=== PATIENT | male | born 1975 | race Caucasian/White ===

== ENCOUNTER 2020-08-12 17:49 | Outpatient (CLI) | payer OTHER, SELFPAY ==
--- NOTE | 2020-08-12 17:57 | XR_ITS ---
WS: [id number] Exam: XR knee LT 3V* [id number] Date/Time of Exam: 08/12/2020 5:57 PM Reason For Exam: LEFT KNEE PAIN Findings: Comparison 05/17/2014. A total knee prosthesis is in place in satisfactory position. No sign of fracture or loosening. No chito int effusion. Soft tissues are unremarkable. XR/XR knee LT 3V* [id number] IMPRESSION: 1. Total knee replacement in satisfactory position. No sign of fracture or loos ening.
== END 2020-08-12 17:50 | disposition home or self-care (01) ==
LOC: RAD 17:50
PROVIDERS: Family Provider Electrodiagnostic Medicine; PCP Electrodiagnostic Medicine; Visit Provider Nurse Practitioner Family
DX: M25.562 Pain in left knee (principal); Z96.652 Presence of left artificial knee joint
CPT/HCPCS: 73562

== ENCOUNTER 2020-08-19 14:58 | Emergency (ER) | payer OTHER, SELFPAY ==
[2020-08-19 15:09] VITALS: BP 159/102; PULSE 84; RESP 18; TEMP 36.3; O2SAT 98; BMI 48.7
--- NOTE | 2020-08-19 15:32 | W.ED.BACK ---
HPI - Back Pain/Injury General: Chief Complaint: Back Pain/Injury Stated Complaint: siatic nerve pain Time Seen by Provider: 08/19/20 15:25 Source: patient Mode of arrival: ambulatory Limitations: no limitations History of Present Illness: HPI Narrative: 44-year-old male who states he has been having back pain over the last 2 to 3 days. States is in his left lower back and radiates down his leg. He states he has sciatica in the past and this feels similar. He denies any fevers. He denies any bowel or bladder incontinence. He states it is worse with movement or sitting for long periods of time. Improved with rest. MD elicited complaint: back pain Associated symptoms: Deny abdominal pain, chills, dysuria, fever(s), nausea or vomiting Review of Systems Const: Denies: fever(s), chills, body aches or change in appetite Eyes: Denies: blurry vision or eye discomfort ENMT: Denies: throat pain or dental pain Card: Denies: chest pain Resp: Denies: dyspnea GI: Denies: abdominal pain, nausea, vomiting or diarrhea : Denies: dysuria Musc: Reports: back pain Skin/Breast: Denies: rash Neuro: Denies: headache(s) Psych: Denies: depression Rio/Lymph: Denies: easy bruising All/Imm: Denies: urticaria Physical Exam Const: COMMON NORMALS: no acute distress, patient oriented x3 and healthy appearing HENMT: COMMON NORMALS: normocephalic and atraumatic HEAD & SCALP: normocephalic and atraumatic Eye: COMMON NORMALS: Equal, round and reactive pupils present and EOMs intact bilaterally PUPIL: Yes Equal, round and reactive pupils present Neck/C-Spine: COMMON NORMALS: full ROM and supple Chest: COMMONS NORMALS: normal inspection of the chest and normal palpation of entire chest wall Resp: COMMON NORMALS: normal respiratory effort, No retractions, No use of accessory muscles and clear to auscultation bilaterally AUSCULTATION: clear to auscultation bilaterally Cardio: COMMON NORMALS: regular rate, regular rhythm and No murmurs present (Cardio) RATE: regular rate RHYTHM: regular rhythm GI: COMMON NORMALS: Normal to inspection, nondistended, normoactive bowel sounds present, Soft to palpation, non-tender and no masses PALPATION: Yes Soft to palpation Back/Pelvis: OTHER: Slight tenderness left lower back. No saddle anesthesia. No leg weakness. Extremity: COMMON NORMALS: normal to inspection and full ROM NARRATIVE EXTREMITY EXAM: Slight tenderness over left lower back Neuro: COMMON NORMALS: patient oriented x3, moves all extremities and no focal motor deficits Psych: COMMON NORMALS: mental status grossly normal, Normal thought process present and cooperative THOUGHT PROCESS: Normal thought process present Skin: COMMON NORMALS: no rashes or lesions noted and no wounds GENERAL SKIN EXAM: no rashes or lesions noted Course Vital Signs: Vital signs: Vital Signs Temperature 97.3 F L 08/19/20 15:09 Pulse Rate 84 08/19/20 15:09 Respiratory Rate 18 08/19/20 15:09 Blood Pressure 159/102 08/19/20 15:09 Pulse Oximetry 98 08/19/20 15:09 MDM - Back Pain/Injury MDM Narrative: Medical decision making narrative: Patient presents here with low back pain with sciatica left side. He has had sciatica in the past. Pain is mild to moderate. He is able ambulate without any problems and he has no signs of cord compression or epidural abscess. We will start him on pain meds along with steroids. Patient is to return if worsening. Discharge Plan Discharge Patient Disposition: Home Clinical Impression: Sciatica Qualifiers: Laterality: left Qualified Code(s): M54.32 - Sciatica, left side Condition: Stable Prescriptions: [place] 5-325 mg tablet 1 tab PO Q6H PRN (Reason: pain) Qty: 8 RF: 0 Naprosyn 500 mg tablet 500 mg PO BID PRN (Reason: pain) Qty: 20 RF: 0 Medrol (Juan) 4 mg tablets,dose pack See Rx Instructions .ROUTE .COMPLEX Qty: 21 RF: 0 No Action sotalol [Betapace] 80 mg tablet 80 mg PO .QPM RF: 0 sotalol [Betapace] 120 mg tablet 120 mg PO QAM RF: 0 levothyroxine 50 mcg capsule 50 mcg PO DAILY RF: 0 naproxen 250 mg tablet 250 mg PO BID PRNRF: 0 aspirin 325 mg tablet 325 mg PO DAILY RF: 0 Discharge Orders: Discharge Order (Routine); Ordered 08/19/20 Ordered By: Katlyn Lugo Referrals: Aleman,Bryce J, DO [Primary Care Provider] - 1-3 days Discharge Diet: Advance as tolerated Discharge Activity: Resume usual activity Patient Instructions: Sciatica (ED) Stand Alone Forms: Work/School Release Coding Level of Care Code ED Air Conditioner Installer Helper for Ambreen Cristina
[2020-08-19] MEDS: HYDROcodone-acetaminophen 5-325 mg Tablet 1 TAB PO (15:42)
== END 2020-08-19 15:50 | disposition home or self-care (01) ==
PROVIDERS: Emergency Provider Emergency Medicine; PCP Electrodiagnostic Medicine
DX: M54.32 Sciatica, left side (principal); Z79.82 Long term (current) use of aspirin
CPT/HCPCS: 12345; 99282

== ENCOUNTER 2020-12-08 14:02 | Observation (INO) | payer OTHER, SELFPAY ==
[2020-12-08] VITALS (11 sets, daily range): BP systolic 106–147; BP diastolic 64–92; PULSE 68–118; RESP 16–31; TEMP 36.6; O2SAT 95–99; BMI 46.7; BMI 49.5
--- NOTE | 2020-12-08 14:18 | ECG_ITS ---
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 Measurements Intervals [place] Rate: 125 P: MT: QRS: 46 QRSD: 85 T: 61 QT: 290 QTc: 419 Interpretive Statements ATRIAL FIBRILLATION WITH RAPID VENTRICULAR RESPONSE ABNORMAL RHYTHM ECG Compared to ECG 02/17/2019 01:20:09 Sinus rhythm no longer present Electronically Signed On 12-08-2020 18:36:34 HAIR MACHINE OPERATOR by Josefina Pedroza M.D. [id number] f
--- NOTE | 2020-12-08 14:18 | XRR_ITS ---
PROCEDURE INFORMATION: Exam: XR Chest, 1 View Exam date and time: 12/08/2020 2:19 PM Age: 45 years old Clinical indication: Shortness of breath; Additional info: SOB TECHNIQUE: Imaging protocol: XR of the chest Views: 1 view. Total images: 1 COMPARISON: CR Chest 1 [place] [id number] 02/11/2019 5:33 AM FINDINGS: Lungs: Unremarkable. No consolidation. Pleural spaces: Unremarkable. No pleural effusion. No pneumothorax. Heart/Mediastinum: Unremarkable. No cardiomegaly. Bones/joints: Unremarkable. Other findings: Heavy body habitus. XR/XR chest 1V portable [id number] IMPRESSION: Nonacute.
--- NOTE | 2020-12-08 14:25 | ED_ITS ---
HPI - Arrhythmia/Palpitations General: Chief Complaint: Arrhythmia/Palpitations Stated Complaint: AFIB & SOB Time Seen by Provider: 12/08/20 14:17 Source: patient Mode of arrival: ambulatory Limitations: no limitations History of Present Illness: HPI narrative: 45-year-old male with a history of paroxysmal A. fib states this morning at 530 he had sudden onset of palpitations along with some pain and shortness of breath. Patient here is in A. fib with RVR with a heart rate in the 150s. States his pain is a sharp pain and rates it a 6 out of 10. He denies any vomiting or diarrhea. Denies any worsening or improving factors. Associated symptoms: Deny nausea or vomiting Review of Systems Const: Denies: fever(s), chills, body aches or change in appetite Eyes: Denies: blurry vision or eye discomfort ENMT: Denies: throat pain or dental pain Card: Reports: chest pain and palpitations Resp: Reports: dyspnea GI: Denies: abdominal pain, nausea, vomiting or diarrhea : Denies: dysuria Musc: Denies: neck pain or back pain Skin/Breast: Denies: rash Neuro: Denies: headache(s) Psych: Denies: depression Rio/Lymph: Denies: easy bruising All/Imm: Denies: urticaria Physical Exam Const: COMMON NORMALS: no acute distress, patient oriented x3 and healthy appearing HENMT: COMMON NORMALS: normocephalic and atraumatic HEAD & SCALP: normocephalic and atraumatic Eye: COMMON NORMALS: Equal, round and reactive pupils present and EOMs intact bilaterally PUPIL: Yes Equal, round and reactive pupils present Neck/C-Spine: COMMON NORMALS: full ROM and supple Chest: COMMONS NORMALS: normal inspection of the chest and normal palpation of entire chest wall Resp: COMMON NORMALS: normal respiratory effort, No retractions, No use of accessory muscles and clear to auscultation bilaterally AUSCULTATION: clear to auscultation bilaterally Cardio: COMMON NORMALS: No murmurs present (Cardio) RATE: tachycardic RHYTHM: abnormal rhythm regularly irregular GI: COMMON NORMALS: Normal to inspection, nondistended, normoactive bowel sounds present, Soft to palpation, non-tender and no masses PALPATION: Yes Soft to palpation Extremity: COMMON NORMALS: normal to inspection and full ROM Neuro: COMMON NORMALS: patient oriented x3, moves all extremities and no focal motor deficits Psych: COMMON NORMALS: mental status grossly normal, Normal thought process present and cooperative THOUGHT PROCESS: Normal thought process present Skin: COMMON NORMALS: no rashes or lesions noted and no wounds GENERAL SKIN EXAM: no rashes or lesions noted Course Vital Signs: Vital signs: Vital Signs Temperature 97.8 F 12/08/20 14:11 Pulse Rate 118 H 12/08/20 15:26 Respiratory Rate 26 H 12/08/20 15:26 Blood Pressure 110/69 12/08/20 15:26 Pulse Oximetry 97 12/08/20 15:26 MDM - Arrhythmia/Palpitations MDM Narrative: Medical decision making narrative: Patient presents with A. fib with RVR has improved after Cardizem bolus and a drip. His first troponin and D- dimer here negative. He feels improved as well. Spoke to the hospitalist and will admit for observation for his A. fib as he is on a Cardizem drip currently. Lab Data: Labs: Lab Results 12/08/20 12/08/20 12/08/20 Range/Units 15:05 15:05 15:05 WBC 12.3 H (4.0-10.0) 10^3/ uL RBC 5.04 (4.1-5.3) 10^6/u L Hgb 15.7 (11.7-16.6) g/dL Hct 46.4 (42.0-52.0) % MCV 92.1 (80-94) fL MCH 31.2 (28.0-34.0) pg MCHC 33.8 (30.0-36.0) g/dL RDW 13.2 (12.1-15.1) % Plt Count 282 (130-400) 10^3/c mm MPV 10.3 (7.4-10.4) fL Neut % (Auto) 55.4 % Lymph % (Auto) 33.7 % [place] % (Auto) 7.2 % Eos % (Auto) 2.4 % Baso % (Auto) 0.7 % Neut # (Auto) 6.82 (1.8-7.7) 10^3/u L Lymph # (Auto) 4.1 (0.8-4.8) 10^3/u L [place] # (Auto) 0.9 (0.2-0.9) 10^3/u L Eos # (Auto) 0.3 (0.0-0.8) 10^3/u L Baso # (Auto) 0.1 (0.0-0.1) 10^3/u L Nucleated RBC % (a uto) 0 % Nucleated RBCs # 0.0 /100WBC PT 13.60 (12.1-14.9) SECO NDS INR 1.01 (0.8-1.2) D-Dimer 0.41 (0-0.59) ug/mIFE U Sodium 138 (136-145) mmol/L Potassium 4.0 (3.5-5.1) mmol/L Chloride 104 (98-107) mmol/L Carbon Dioxide 24 (22-29) mmol/L Anion Gap 14.0 (5-19) BUN 12 (6-20) mg/dL Creatinine 0.8 (0.7-1.2) mg/dL GFR Calculation 104.1 (90-130) mL/min Calculated Osmolal ity 288 (285-295) mOsm/k g Calcium 8.9 (8.5-10.5) mg/dL Total Bilirubin 0.3 (0.15-1.2) mg/dL AST 20 (0-40) U/L ALT 26 (0-41) U/L Alkaline Phosphata se 102 (40-130) IU/L Troponin T Baselin e (0-15) ng/L Total Protein 6.8 (6.6-8.7) g/dL Albumin 3.8 (3.5-5.2) g/dL Globulin 3.0 (1.3-4.6) g/dL TSH 1.13 (0.27-4.20) uIU/ mL 12/08/20 Range/Units 15:05 WBC (4.0-10.0) 10^3/ uL RBC (4.1-5.3) 10^6/u L Hgb (11.7-16.6) g/dL Hct (42.0-52.0) % MCV (80-94) fL MCH (28.0-34.0) pg MCHC (30.0-36.0) g/dL RDW (12.1-15.1) % Plt Count (130-400) 10^3/c mm MPV (7.4-10.4) fL Neut % (Auto) % Lymph % (Auto) % [place] % (Auto) % Eos % (Auto) % Baso % (Auto) % Neut # (Auto) (1.8-7.7) 10^3/u L Lymph # (Auto) (0.8-4.8) 10^3/u L [place] # (Auto) (0.2-0.9) 10^3/u L Eos # (Auto) (0.0-0.8) 10^3/u L Baso # (Auto) (0.0-0.1) 10^3/u L Nucleated RBC % (a uto) % Nucleated RBCs # /100WBC PT (12.1-14.9) SECO NDS INR (0.8-1.2) D-Dimer (0-0.59) ug/mIFE U Sodium (136-145) mmol/L Potassium (3.5-5.1) mmol/L Chloride (98-107) mmol/L Carbon Dioxide (22-29) mmol/L Anion Gap (5-19) BUN (6-20) mg/dL Creatinine (0.7-1.2) mg/dL GFR Calculation (90-130) mL/min Calculated Osmolal ity (285-295) mOsm/k g Calcium (8.5-10.5) mg/dL Total Bilirubin (0.15-1.2) mg/dL AST (0-40) U/L ALT (0-41) U/L Alkaline Phosphata se (40-130) IU/L Troponin T Baselin e 14 (0-15) ng/L Total Protein (6.6-8.7) g/dL Albumin (3.5-5.2) g/dL Globulin (1.3-4.6) g/dL TSH (0.27-4.20) uIU/ mL Imaging Data^: CXR: Attestation: I personally reviewed and interpreted this imaging study as follows: My impression: no acute abnomality EKG Data^: EKG 1: Attestation: I personally reviewed and interpreted this EKG as follows: EKG interpretation date: 12/08/20 EKG interpretation time: 14:09 Interpretation: afib hr [address] or t wave abnormalities qrs 85 qtc 364 Other EKG comments: Chest X-Ray 12/08/20 14:18 IMPRESSION: Nonacute. Discharge Plan Discharge Patient Disposition: Admitted As Inpatient Clinical Impression: Atrial fibrillation Qualifiers: Atrial fibrillation type: unspecified Qualified Code(s): I48.91 - Unspecified atrial fibrillation Condition: Stable Coding Level of Care Code ED Surveillance Inspector for g Fwd Exam Comprehensive
[2020-12-08] MEDS: sodium chloride 0.9% 1,000 ML 999 ML IV (14:52)
[2020-12-08 15:11] LABS: Basophils # 0.1 10^3/uL (0.0-0.1); Basophils % 0.7 %; Eosinophils # 0.3 10^3/uL (0.0-0.8); Eosinophils % 2.4 %; Hematocrit 46.4 % (42.0-52.0); Hemoglobin 15.7 g/dL (11.7-16.6); Lymphocytes # 4.1 10^3/uL (0.8-4.8); Lymphocytes % 33.7 %; Mean Corpuscular HGB Conc 33.8 g/dL (30.0-36.0); Mean Corpuscular Hemoglobin 31.2 pg (28.0-34.0); Mean Corpuscular Volume 92.1 fL (80-94); Mean Platelet Volume 10.3 fL (7.4-10.4); Monocytes # 0.9 10^3/uL (0.2-0.9); Monocytes % 7.2 %; Neutrophils # 6.82 10^3/uL (1.8-7.7); Neutrophils % 55.4 %; Nucleated Red Blood Cells % 0 %; Platelet Count 282 10^3/cmm (130-400); Red Blood Count 5.04 10^6/uL (4.1-5.3); Red Cell Distribution Width 13.2 % (12.1-15.1); White Blood Count 12.3 10^3/uL (4.0-10.0)
[2020-12-08 15:31] LABS: INR 1.01 (0.8-1.2)
[2020-12-08 15:33] LABS: D Dimer 0.41 ug/mIFEU (0-0.59)
[2020-12-08 15:35] LABS: Troponin(5th) Baseline 14 ng/L (0-15)
[2020-12-08 15:41] LABS: Alanine Aminotransferase 26 U/L (0-41); Albumin Level 3.8 g/dL (3.5-5.2); Alkaline Phosphatase 102 IU/L (40-130); Aspartate Amino Transferase 20 U/L (0-40); Blood Urea Nitrogen 12 mg/dL (6-20); Calcium 8.9 mg/dL (8.5-10.5); Carbon Dioxide 24 mmol/L (22-29); Chloride 104 mmol/L (98-107); Glomerular Filtration Rate 104.1 mL/min (90-130); Glucose 134 mg/dL (65-115); Osmolality Calculated 288 mOsm/kg (285-295); Sodium 138 mmol/L (136-145); Thyroid Stimulating Hormone 1.13 uIU/mL (0.27-4.20); Total Bilirubin 0.3 mg/dL (0.15-1.2); Total Protein 6.8 g/dL (6.6-8.7)
[2020-12-08] MEDS: LORazepam 2 mg/mL INJ 1 mL 1 MG IVP (16:15)
--- NOTE | 2020-12-08 16:18 | ECG_ITS ---
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 Measurements Intervals [place] Rate: 106 P: SD: QRS: 37 QRSD: 92 T: 59 QT: 340 QTc: 452 Interpretive Statements ATRIAL FIBRILLATION WITH RAPID VENTRICULAR RESPONSE Compared to ECG 02/17/2019 01:20:09 Sinus rhythm no longer present Electronically Signed On 12-08-2020 18:39:01 BABYSITTER by Josefina Pedroza M.D. [id number]
--- NOTE | 2020-12-08 16:37 | P.HP_ITS ---
Providers/Chief Complaint Primary Care Provider: Patti Khan Chief Complaint: AFIB History of Present Illness Kerrie Davis is a 45 year old male with past medical history of atrial fibrillation who is on sotalol, hypothyroidism, morbid obesity who is presenting with complaints of palpitations which started suddenly this morning causing significant palpitations, throbbing in the head, chest discomfort and shortness of breath. The symptoms are described as moderate. Currently resolved after the patient was given diltiazem in the emergency room. Currently on diltiazem drip. Reports similar episode about 2 years ago when he was diagnosed with atrial fibrillation. He has not seen his aluminum pool installer Dr Lafleur for the last 12 months or so. He reports taking his medications regularly except for aspirin which she frequently forgets. Denies history of heart attacks or CHF, strokes, bleeding problems or blood clots. He reports some dry cough and upper respiratory symptoms for last several days. Denies fever or chills. No nausea or vomiting. No diarrhea. No sick contacts. He reports generalized tiredness and decreased energy level since last 2 months or so. Reports tobacco smoking. Denies drugs and alcohol. Review of Systems General: Reports: 10 or more systems reviewed and unremarkable except in HPI and below Medications/Allergies Home Medications Medication Instructions Recorded Confirmed Last Taken Type levothyroxine 50 mcg capsule 50 mcg PO DAILY 11/27/19 12/08/20 12/08/20 History sotalol 120 mg tablet 120 mg PO QAM tab 11/27/19 12/08/20 12/08/20 History sotalol 80 mg tablet 80 mg PO QPM tab 11/27/19 12/08/20 12/07/20 History atorvastatin 80 mg PO DAILY 12/08/20 12/08/20 12/07/20 History Allergies Allergy/AdvReac Type Severity Reaction Status Date / Time No Known Allergies Allergy Unverified 08/19/20 15:12 Vitals/I&O/Wt Last Vital Signs Temp 97.8 F 12/08/20 14:11 Pulse 108 H 12/08/20 16:22 Resp 31 H 12/08/20 16:22 BP 113/64 12/08/20 16:22 Pulse Ox 96 12/08/20 16:22 12/08/20 12/08/20 12/08/20 06:59 14:59 22:59 Intake Total 3.666 / 3.666 Balance 3.666 / 3.666 Weight last 48 hrs Weight 143.789 kg Physical Exam Narrative: EXAM NARRATIVE: Awake alert oriented x4. No acute distress. Mood and affect are appropriate. Responses are adequate. Skin is warm and dry. Moist extremities. Neck supple. No JVD Lungs no wheezes or crackles. No respiratory distress Heart S1, S2, irregularly irregular Abdomen is soft, obese, nontender, bowel sounds are present Extremities no edema cyanosis or calf tenderness bilaterally no tremors. Neuro exam is nonfocal Data : 12/08/20 15:05 12/08/20 15:05 Other Labs: Laboratory Results WBC 12.3 10^3/uL (4.0-10.0) H 12/08/20 15:05 RBC 5.04 10^6/uL (4.1-5.3) 12/08/20 15:05 Hgb 15.7 g/dL (11.7-16.6) 12/08/20 15:05 Hct 46.4 % (42.0-52.0) 12/08/20 15:05 MCV 92.1 fL (80-94) 12/08/20 15:05 MCH 31.2 pg (28.0-34.0) 12/08/20 15:05 MCHC 33.8 g/dL (30.0-36.0) 12/08/20 15:05 RDW 13.2 % (12.1-15.1) 12/08/20 15:05 Plt Count 282 10^3/cmm (130-400) 12/08/20 15:05 MPV 10.3 fL (7.4-10.4) 12/08/20 15:05 Neut % (Auto) 55.4 % 12/08/20 15:05 Lymph % (Auto) 33.7 % 12/08/20 15:05 [place] % (Auto) 7.2 % 12/08/20 15:05 Eos % (Auto) 2.4 % 12/08/20 15:05 Baso % (Auto) 0.7 % 12/08/20 15:05 Neut # (Auto) 6.82 10^3/uL (1.8-7.7) 12/08/20 15:05 Lymph # (Auto) 4.1 10^3/uL (0.8-4.8) 12/08/20 15:05 [place] # (Auto) 0.9 10^3/uL (0.2-0.9) 12/08/20 15:05 Eos # (Auto) 0.3 10^3/uL (0.0-0.8) 12/08/20 15:05 Baso # (Auto) 0.1 10^3/uL (0.0-0.1) 12/08/20 15:05 Nucleated RBC % (auto) 0 % 12/08/20 15:05 Nucleated RBCs # 0.0 /100WBC 12/08/20 15:05 PT 13.60 SECONDS (12.1-14.9) 12/08/20 15:05 INR 1.01 (0.8-1.2) 12/08/20 15:05 D-Dimer 0.41 ug/mIFEU (0-0.59) 12/08/20 15:05 Sodium 138 mmol/L (136-145) 12/08/20 15:05 Potassium 4.0 mmol/L (3.5-5.1) 12/08/20 15:05 Chloride 104 mmol/L (98-107) 12/08/20 15:05 Carbon Dioxide 24 mmol/L (22-29) 12/08/20 15:05 Anion Gap 14.0 (5-19) 12/08/20 15:05 BUN 12 mg/dL (6-20) 12/08/20 15:05 Creatinine 0.8 mg/dL (0.7-1.2) 12/08/20 15:05 GFR Calculation 104.1 mL/min (90-130) 12/08/20 15:05 Glucose 134 mg/dL (65-115) H 12/08/20 15:05 Calculated Osmolality 288 mOsm/kg (285-295) 12/08/20 15:05 Calcium 8.9 mg/dL (8.5-10.5) 12/08/20 15:05 Total Bilirubin 0.3 mg/dL (0.15-1.2) 12/08/20 15:05 AST 20 U/L (0-40) 12/08/20 15:05 ALT 26 U/L (0-41) 12/08/20 15:05 Alkaline Phosphatase 102 IU/L (40-130) 12/08/20 15:05 Troponin T Baseline 14 ng/L (0-15) 12/08/20 15:05 Total Protein 6.8 g/dL (6.6-8.7) 12/08/20 15:05 Albumin 3.8 g/dL (3.5-5.2) 12/08/20 15:05 Globulin 3.0 g/dL (1.3-4.6) 12/08/20 15:05 TSH 1.13 uIU/mL (0.27-4.20) 12/08/20 15:05 Impressions Chest X-Ray 12/08/20 14:18 IMPRESSION: Nonacute. EKG shows A. fib with RVR. No acute ischemic changes. A&P Additional A&P Information 45-year-old male with past medical history of paroxysmal A. fib, hypothyroidism, morbid obesity and tobacco abuse who is presenting with palpitations and associated chest discomfort, shortness of breath, generalized tiredness. A. fib with RVR. Currently heart rate is improved with diltiazem drip. Will go to cardiac stepdown. We will continue diltiazem. We will continue home sotalol. Chads 2 score is 0 at this point. No anticoagulation. We will continue his home aspirin. Echo will be ordered. Will notify Dr. Lafleur. Shortness of breath. Echo. Chest discomfort. Probably secondary to #1. We will continue monitoring troponin level. Most likely this is due to RVR. Upper respiratory symptoms. I will check his Covid. I suspect he has some degree of COPD. He is active smoker. We will also order Pulmicort Respules. Would like to avoid albuterol or Atrovent due to tachycardia. Tobacco abuse. Counseling is provided. Dyslipidemia. We will continue statin. DVT prophylaxis. Heparin. CODE STATUS seems to be full code. The plan of care was discussed with the patient and his at the bedside. I answered to all their questions to the best of my knowledge. They verbalized understanding, agreement and satisfaction with the conversation. Attestations Medical Necessity Statement*: Observation Coding Level of Care Code Acute Juice Packaging Machines Setter for Ambreen Cristina
[2020-12-08 17:17] LABS: SARS Covid-2 Antigen Negative (Negative)
[2020-12-08] MEDS: heparin 5,000 unit/mL INJ 1 mL 5000 UNIT SUBCUT ×2 (17:17→23:39)
[2020-12-08 17:40] LABS: Troponin 5 2HR 12.06 ng/L (0-15)
[2020-12-08 17:44] LABS: Troponin 5 2HR Delta -1.94 ABS# (0-10)
[2020-12-08] MEDS: sotalol 80 mg Tablet PO (18:11)
--- NOTE | 2020-12-08 18:20 | PC.NURSE ---
admitted into room 102 from er at 1800.report received.pt is alert and oriented x 4 .afib on monitor.rate 115.cardizem drip on at 15 mg/hr.denies chest pain,sob.oriented to room environment.instructed to notify staff for any sob,cp,dizziness,or any concerns at all.pt verb understanding of instructions
--- NOTE | 2020-12-08 19:13 | PC.NURSE ---
Addendum entered by Grace Avalos RN 12/08/20 19:25: SR Coverted to sinus rhythm at 1903. Strip printed and placed in patient's chart. Original Note: Received report from JOHN Martinez. Patient is currently sinus rhythm with rate at 70-71. Decreased cardizem drip to 5ml/hr currently. Discussed change from afib to normal sinus rhythm with patient. Patient verbalized understanding. Discussed medications for this evening uses and expectations. Patient again verbalized understanding. Patient denies needs or other discomforts at this time. No distress observed.
[2020-12-08] MEDS: budesonide 0.5 mg/2 mL Neb INHALATION (19:49)
--- NOTE | 2020-12-08 20:40 | PC.NURSE ---
Patient remains in sinus rhythm at a rate of 69-72. Placed cardizem drip on pause at this time.
[2020-12-08 22:38] LABS: Troponin 5 6HR 10.29 ng/L (0-15)
[2020-12-08 22:40] LABS: Troponin 5 6HR Delta -3.71 ng/L (0-12)
[2020-12-09] VITALS (10 sets, daily range): BP systolic 107–144; BP diastolic 70–111; PULSE 60–72; RESP 16–18; TEMP 36.4–36.7; O2SAT 95–100
[2020-12-09] MEDS: sotalol 80 mg Tablet 120 MG PO (05:21)
--- NOTE | 2020-12-09 05:27 | PC.NURSE ---
Patient requesting his thyroid medication this morning. Noted that home dose was not ordered. Spoke with Dr Aguirre and received order to start levothyroxine 50mcg qam. RBVO.
[2020-12-09 05:48] LABS: Basophils # 0.1 10^3/uL (0.0-0.1); Basophils % 0.8 %; Eosinophils # 0.3 10^3/uL (0.0-0.8); Eosinophils % 2.4 %; Hematocrit 43.3 % (42.0-52.0); Hemoglobin 14.4 g/dL (11.7-16.6); Lymphocytes # 3.8 10^3/uL (0.8-4.8); Lymphocytes % 36.2 %; Mean Corpuscular HGB Conc 33.3 g/dL (30.0-36.0); Mean Corpuscular Volume 93.1 fL (80-94); Mean Platelet Volume 11.2 fL (7.4-10.4); Monocytes % 9.2 %; Neutrophils # 5.38 10^3/uL (1.8-7.7); Neutrophils % 50.8 %; Nucleated Red Blood Cells % 0 %; Platelet Count 251 10^3/cmm (130-400); Red Blood Count 4.65 10^6/uL (4.1-5.3); Red Cell Distribution Width 13.4 % (12.1-15.1); White Blood Count 10.6 10^3/uL (4.0-10.0)
--- NOTE | 2020-12-09 06:00 | USCV_ITS ---
Kerrie Davis Age: 45 Gender: M : 1975 Exam Date: 12/09/2020 06:25 Ordering Phys: Maykel Bah MD Technologist: Jose Schilling Exam Location: [facility] [place] Indication: MSSA BC BP: 117 / 76 HR: 69 Rhythm: Sinus Technical Quality: Limited MEASUREMENTS (Male / Female) Normal Values 2D ECHO LV Diastolic Diameter PLAX 3.3 cm 4.2 - 5.9 / 3.9 - 5.3 cm LV Systolic Diameter PLAX 2.7 cm IVS Diastolic Thickness 1.9 cm 0.6 - 1.0 / 0.6 - 0.9 cm IVS Systolic Thickness 2.0 cm LVPW Diastolic Thickness 1.1 cm 0.6 - 1.0 / 0.6 - 0.9 cm LVPW Systolic Thickness 1.6 cm LVOT Diameter 2.1 cm LV Ejection Fraction 2D Teich 12.0 % LV Ejection Fraction MOD 2C 63.6 % LV Ejection Fraction 2C AL 63.0 % LA Diameter 4.0 cm LA Width 4.2 cm LA Height 5.2 cm RA Width 3.6 cm RA Height 5.0 cm Aorta at Sinotubular Diameter 2.7 cm M-MODE LV Diastolic Diameter MM 5.1 cm 4.2 - 5.9 / 3.9 - 5.3 cm LV Systolic Diameter MM 2.9 cm LV Ejection Fraction MM Teich 73.0 % IVS Diastolic Thickness MM 1.6 cm 0.6 - 1.0 / 0.6 - 0.9 cm IVS Systolic Thickness MM 2.1 cm LVPW Diastolic Thickness MM 1.5 cm 0.6 - 1.0 / 0.6 - 0.9 cm LVPW Systolic Thickness MM 2.2 cm RV Diastolic Diameter MM 1.9 cm Aortic Annulus Diameter 3.8 cm LA Ao Ratio MM 1.1 MV E Point Septal Separation 0.6 cm DOPPLER AV Peak Velocity 119.0 cm/s LVOT Peak Velocity 85.0 cm/s AV Area Cont Eq vti 2.5 cm squared AV Area Cont Eq pk 2.4 cm squared MV Area PHT 5.0 cm squared Mitral E to A Ratio 1.3 MV E' Velocity 42.0 cm/s Mitral E to MV E' Ratio 8.2 Mitral E to LV E' Lateral Ratio 8.6 Mitral E to LV E' Septal Ratio 7.9 TR Peak Velocity 140.7 cm/s TR Peak Gradient 7.9 mmHg TV Peak E Velocity 118.0 cm/s Right Atrial Pressure 3.0 mmHg Pulmonary Artery Systolic Pressu 10.9 mmHg FINDINGS Left Ventricle Normal left ventricular size. Grossly LV systolic function is normal. No regional wall motion abnormalities. Diastolic function is normal Right Ventricle The right ventricle is normal in size and function. Right Atrium The right atrium is normal in size. Left Atrium The left atrium is normal in size. Mitral Valve Grossly normal. No mitral stenosis is seen. There is no mitral regurgitation. Aortic Valve Grossly normal. No significant aortic stenosis is seen. There is no aortic regurgitation. Tricuspid Valve Not well visualized. Insufficient TR jet to calculate RVSP Pulmonic Valve Not well visualized Pericardium Normal pericardium without effusion. Aorta Normal ascending aorta dimension. CONCLUSIONS This is technically very difficult study with limited visualization of cardiac structures. LV systolic function is grossly normal Normal diastolic function Valvular structures are not well visualized. Compared to prior echocardiogram from 02/13/2019, no significant changes are noted Sergio Jimenez MD (Electronically Signed) Final Date: 09 December 2020 19:20 S
[2020-12-09] MEDS: levothyroxine 50 mcg Tablet PO (06:06)
[2020-12-09 06:10] LABS: C Reactive Protein 10.2 mg/L (0.0-4.9); Magnesium 1.8 mg/dL (1.7-2.3)
--- NOTE | 2020-12-09 07:00 | ECG_ITS ---
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 Measurements Intervals [place] Rate: 63 P: 5 MA: 195 QRS: 10 QRSD: 95 T: -5 QT: 457 QTc: 471 Interpretive Statements SINUS RHYTHM PROLONGED QT INTERVAL Compared to ECG 12/08/2020 16:09:52 Prolonged QT interval now present Atrial fibrillation no longer present Electronically Signed On 12-10-2020 6:37:46 DIAMOND CLEANER by Josefina Pedroza M.D. [email or web address].SecureWorks/store/[id number]
[2020-12-09] MEDS: atorvastatin 40 mg Tablet 80 MG PO (08:15)
[2020-12-09] MEDS: heparin 5,000 unit/mL INJ 1 mL 5000 UNIT SUBCUT (08:15)
[2020-12-09] MEDS: aspirin 81 mg EC Tablet PO (08:15)
[2020-12-09] MEDS: magnesium sulfate premix 2 GM/50 ML PIGGYBACK IV (09:00)
[2020-12-09] MEDS: dilTIAZem 30 mg Tablet PO ×2 (09:00→14:58)
[2020-12-09] MEDS: budesonide 0.5 mg/2 mL Neb INHALATION (09:09)
--- NOTE | 2020-12-09 09:24 | PC.CHAP ---
Pastoral Care Encounter/Spiritual Assessment Type of Contact [] Declined spindraw operator visit [] Patient/Family/Request visit [] Outpatient visit [] Follow-up visit [] Physician referral [] Code/Alert [x] Routine visit [] Staff referral [] Actively dying [] Patient sleeping [] Family support [] [] Out of room [] Palliative care [] [] Receiving care in room [] Pre-surgical visit [] Trauma [] Long length of stay [] ICU visit [] Other: Relational/Emotional Strength [] Patient feels connected with others/family/visitors/staff [] Distress [] Loneliness/isolation [] Abandonment Spirituality of Patient [] Person of Nury [] Attends Christianity of their [place] [] Believes in Prayer [] Reads Bible or Cheondoism materials [] There are Spiritual issues to be addressed Rehabilitation Case Coordinator Interventions [x] Prayer [] Active listening [] Non-anxious presence [] Spiritual/emotional support [] Crisis/trauma care [] Spiritual counseling [] Bereavement support [] Provided bereavement packet [] Provided Bible/devotional materials [] Provided toy/stuffed animal, coloring book to patient or family member [] Provided Communion [] Anointing/[place] [] Salvation [x] Completed spiritual assessment [] Other: Impact on Illness or Injury [] Angry [] Fearful [] Anxious [] Often cries [] Exhaustion [] Unable to work [] Unable to attend mu-ism [] Unable to walk/stand [] Unable to read [] Unable to drive [] Unable to eat/drink [] Unable to sleep [] Unable to be with family [] Patient intubated [] Other: Summary patient confident issue will be address... resting well Time spent with patient 10 min
--- NOTE | 2020-12-09 10:57 | ECG_ITS ---
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 Measurements Intervals [place] Rate: 66 P: 53 [place]: 195 QRS: 41 QRSD: 95 T: 51 QT: 439 QTc: 463 Interpretive Statements SINUS RHYTHM Compared to ECG 12/09/2020 07:13:43 Prolonged QT interval no longer present Electronically Signed On 12-10-2020 6:09:42 TERRAZZO TILE SETTER by Josefina Pedroza M.D. [id number]
--- NOTE | 2020-12-09 13:23 | ECG_ITS ---
[facility] Test Date: 2020-12-09 Pat Name: Kerrie Davis Department: Room: 102 Gender: Male Dietary Aid: : 1975 Requested By: Hardik Ordoñez Order Number: [id number] Donald MD: Josefina Pedroza M.D. Measurements Intervals [place] Rate: 68 P: 55 ME: 172 QRS: 40 QRSD: 97 T: 44 QT: 427 QTc: 457 Interpretive Statements SINUS RHYTHM Compared to ECG 12/09/2020 11:26:18 No significant changes Electronically Signed On 12-10-2020 5:58:58 TEACHER ASST by Josefina Pedroza M.D. [email or web address]/store/[id number]
--- NOTE | 2020-12-09 16:26 | PC.NURSE ---
1550 patient discharged home self care. patient provided discharge instructions as well as education on new medications and diagnosis patient assisted to wheel chair and accompanied by staff to private vehicle patient alert oriented and in stable condition upon departure
--- NOTE | 2021-01-12 13:23 | PM.DCS ---
Discharge Providers Date of Admission: 12/08/20 18:01 Date of Discharge: January 12, 2021 Attending Provider at Admission: Maykel Bah Attending Provider at Discharge: Hardik Ordoñez MD Primary Care Provider: Patti Kahn Reason for Visit Reason for Visit: AFIB Hospital Course Hospital Course This is a 45-year-old male with a past medical history of A. fib, who is on sotalol, hypothyroidism, morbid obesity who presents to [facility] due to complaints of chest palpitations -Patient was admitted to [facility] for A. fib with RVR, placed on a Cardizem drip, admitted to the CSU unit, [id number] is 0, is not on anticoagulation, patient's rate were better controlled, switch to p.o. Cardizem. He was discharged on p.o. Cardizem 60 mg p.o. every 12 hours, with sotalol 120 mg in the morning, 80 mg of sotalol every afternoon, aspirin 325 mg daily follow with Dr[address] Lafleur as outpatient. Physical Exam Const: COMMON NORMALS: no acute distress and patient oriented x3 HENMT: COMMON NORMALS: normocephalic HEAD & SCALP: normocephalic Neck/C-Spine: COMMON NORMALS: no JVD Resp: COMMON NORMALS: normal respiratory effort, No retractions, No use of accessory muscles and clear to auscultation bilaterally AUSCULTATION: clear to auscultation bilaterally Cardio: COMMON NORMALS: no JVD, regular rate, regular rhythm, S1 normal heart sound present and S2 normal heart sound present RATE: regular rate RHYTHM: regular rhythm and abnormal rhythm HEART SOUNDS: S1 normal heart sound present and S2 normal heart sound present GI: COMMON NORMALS: Normal to inspection, nondistended, normoactive bowel sounds present, Soft to palpation, non-tender, No hepatosplenomegaly present, no masses and no bruits PALPATION: Yes Soft to palpation and Yes No hepatosplenomegaly present Extremity: COMMON NORMALS: capillary refill normal, no clubbing, cyanosis or edema, no calf tenderness and no pedal edema Neuro: COMMON NORMALS: patient oriented x3 Psych: COMMON NORMALS: mental status grossly normal Discharge Data Data Completed and Pending: Completed Studies During Hospitalization Category Date Time Status XR chest 1V aroldo ble [id number] Stat Exams 12/08/20 14:18 Completed CV echo complete* [id number] Routine Ultrasound 12/09/20 06:00 Completed Vitals: Last Vital Signs Temp 98.0 F 12/09/20 15:34 Pulse 72 12/09/20 15:34 Resp 18 12/09/20 15:34 BP 119/97 12/09/20 15:34 Pulse Ox 100 12/09/20 15:34 Discharge Plan Discharge Patient Disposition: Home Condition: Stable Prescriptions: Continued sotalol [Betapace] 80 mg tablet 80 mg PO QPM RF: 0 sotalol [Betapace] 120 mg tablet 120 mg PO QAM RF: 0 levothyroxine 50 mcg capsule 50 mcg PO DAILY RF: 0 atorvastatin 80 mg tablet 80 mg PO DAILY RF: 0 No Action aspirin 325 mg tablet,delayed release (DR/EC) 325 mg PO DAILY Qty: 90 RF: 3 Discharge Orders: Discharge Order (Routine); Ordered 12/09/20 Ordered By: Hardik Ordoñez Referrals: Patti Khan RETAIL PHARMACY MANAGER [Primary Care Provider] - 4-7 days (You have a follow up appointment with Patti on 12/10/20 at 900 am. if you have any questions or need to reschedule please call [phone]. ) Austin Lafleur MD [Physician] - 1-3 days (You have follow-up appointment with Dr. Lafleur on 12/10/20 at 1:15 pm. if you have any questions or need to reschedule please call [phone]. ) Discharge Diet: Cardiac Discharge Activity: Resume usual activity Patient Instructions: Atrial Fibrillation, Diltiazem (By mouth), Aspirin (By mouth), Magnesium Oxide (By mouth), Atrial Fibrillation (DC) Activity Restrictions/Additional Instructions: -If you were to have chest pain please go to the emergency room -Please follow-up with cardiology in the next few days -Please take aspirin and Cardizem as prescribed Discharge Attestations Time Spent in Discharge Care*: less than 30 min Quality Metrics Clinical Quality Measures During this hospital stay, did patient experience: None Coding Level of Care Code Acute Chg FW DC note Exam Comprehensive
== END 2020-12-09 15:50 | disposition home or self-care (01) ==
LOC: ER 15:48 → CSU 12-09 08:27
PROVIDERS: Admitting Provider Internal Medicine; Emergency Provider Emergency Medicine; PCP Nurse Practitioner Family; Visit Provider Family Medicine
DX: I48.91 Unspecified atrial fibrillation (principal); R06.02 Shortness of breath; E03.9 Hypothyroidism, unspecified; E66.01 Morbid (severe) obesity due to excess calories; Z68.42 Body mass index [BMI] 45.0-49.9, adult; R07.89 Other chest pain; F17.210 Nicotine dependence, cigarettes, uncomplicated; E78.5 Hyperlipidemia, unspecified
CPT/HCPCS: 36415; 71045; 80053; 83735; 84443; 84484; 85025; 85378; 85610; 86140; 87426; 93005; 93306; 94640; 94664; 96365; 96366; 96367; 96372; 96375; 99285; G0378; J1644; J2060; J3475; J3490; J7030; J7626

== ENCOUNTER 2021-07-23 07:39 | Outpatient (CLI) | payer OTHER, SELFPAY ==
[2021-07-23 08:27] VITALS: BMI 47.2
--- NOTE | 2021-07-23 09:50 | ECG_ITS ---
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 The perfusion scan will be documented separately. DATA: Baseline heart rate was 57 beats per minute. Baseline blood pressure was 112/80 millimeters of mercury. Target heart rate was 174. Maximum heart rate achieved was 74 . which was 42 % of the predicted target heart rate. Maximum blood pressure was 126/88 millimeters of mercury. The reason for ending the test was completion of the protocol. The patient did not experience any symptoms. ELECTROCARDIOGRAM: BASELINE: Sinus rhythm. Normal axis. Otherwise, no ST-T changes suggestive of ischemia noted. No arrhythmia noted. EXERCISE: After Lexiscan injection, no ST-T changes suggestive of ischemic noted. No arrhythmia noted. CONCLUSION: Please note due to baseline abnormality of the EKG specificity and sensitivity of the EKG portion of LexiScan MIBI stress test will be low 1. EKG not suggestive of ischemia 2. Lexiscan injection unremarkable. 3. Perfusion scan will be documented separately. Electronically Signed On 09-05-2021 18:57:38 COUNTER CONTROL OPERATOR by AUSTIN FREITAS [email or web address]/[id number]
--- NOTE | 2021-07-23 09:51 | NMCV_ITS ---
NM kyle perf SPECT r/s* [id number] Kerrie Davis Age: 45 Gender: M : 1975 Exam Date: 07/23/2021 09:47 Ordering Phys: Austin Lafleur MD ([email or web address]) Technologist: ROLA Valenzuela Exam Location: [facility] Indications: SHORTNESS OF BREATH STRESS TEST Please see separate stress test report in Ephiphany for full findings IMAGE PROTOCOL Rest/Stress 1 Lexiscan Day Radiopharmaceutical Dose (mCi) Administration Site Administered by Rest: Tc-99m 10.8 IV ROLA Valdez Sestamibi Stress:Tc-99m 32.9 IV ROLA Valdez Sestamibi Rest: 23-Jul-2021 60 Discovery 630 Stress: 23-Jul-2021 30 Discovery 630 0.4mg Lexiscan. Supine position only as patient was unable to lay prone. SPECT RESULTS Technical Quality: Excellent Raw Data Analysis: Normal Image Corrections: No attenuation or motion correction applied Summed Stress Score: 0 Summed Rest Score: 6 Summed Difference Score: 0 PERFUSION FINDINGS Medium-sized area of patchy decreased fixed tracer uptake noted in basal to mid anterior wall suggestive of old myocardial infarction versus scarring. Medium- sized area of patchy decreased tracer uptake noted in basal to mid inferior and distal inferior segment suggestive of old myocardial infarction versus scarring. FUNCTIONAL RESULTS (calculated via Gated SPECT) Stress Image LV EF (%): 62 Stress EDV (mL):159 TID: 1.03 Stress ESV (mL):61 Rest Image LV EF (%): 62 FUNCTIONAL FINDINGS: There is normal left ventricular systolic function. IMPRESSIONS Medium-sized area of fixed perfusion defect noted in basal to mid anterior and basal to mid inferior wall suggestive of old myocardial infarction versus scarring. Small area of old myocardial infarction versus scarring noted in the distal inferior segment. There is no ischemia noted in this study. EKG segment will be documented separately. Austin Lafleur MD (Electronically Signed) Final Date: 23 July 2021 18:21 S
[2021-07-23 10:24] VITALS: BP 117/70; PULSE 71
[2021-07-23] MEDS: regadenoson 0.4 Mg/5 ml Syringe IVP (10:25)
== END 2021-07-23 07:40 | disposition home or self-care (01) ==
LOC: CDL 07:41
PROVIDERS: PCP Nurse Practitioner Family; Visit Provider Internal Medicine Cardiovascular Disease
DX: R07.9 Chest pain, unspecified (principal); R06.02 Shortness of breath
CPT/HCPCS: 78452; 93017; A9500; J2785

== ENCOUNTER 2022-03-24 16:16 | Emergency (ER) | payer OTHER, SELFPAY ==
[2022-03-24 16:38] VITALS: BP 154/94; PULSE 81; RESP 16; TEMP 36.9; O2SAT 97; BMI 44.3
[2022-03-24] MEDS: tetanus-dipt-pertussis 0.5 mL SDV IM (17:01)
--- NOTE | 2022-03-24 17:01 | W.ED.ANIMALB ---
HPI - Animal Bite General: Chief Complaint: Animal Bite Stated Complaint: R foot rash, possible snake bite Time Seen by Provider: 03/24/22 16:54 Source: patient Mode of arrival: ambulatory Limitations: no limitations History of Present Illness: 46-year-old male presents emergency room with irritation on the medial aspect of the right foot. 2 days ago he was working outside he seen a copperhead crawl over his feet but he does not think he been bit today began to have some swelling develop. There is slight blistering he is not had any fever sweats chills there is minimal discomfort at the foot. There is very mild swelling, no purulent drainage. MD complaint: possible animal exposure Onset (ago): day(s) (2) Animal: snake Mechanism: bite Location - Extremities: Right: foot Pain description: dull Associated symptoms: Deny bleeding, chills, cough, diaphoresis, erythema, fever(s), headache(s), numbness, rash, short of breath, syncope, weakness or wound drainage Review of Systems Const: Denies: fever(s), chills or diaphoresis ENMT: Denies: throat pain, ear or mastoid pain, nasal discharge or nasal congestion Card: Denies: syncope Resp: Denies: dyspnea, productive cough or non-productive cough GI: Denies: abdominal pain, nausea, vomiting or bloating Skin/Breast: Reports: rash, pruritus and erythema Neuro: Denies: headache(s) [facility] ED PFSH: Medical History Atrial fibrillation HTN (hypertension) Social History Smoking and tobacco status: current every day smoker cigarettes Packs smoked per day: 1 Years cigarettes smoked: 20 Physical Exam Const: COMMON NORMALS: no acute distress GENERAL APPEARANCE: cooperative and comfortable ORIENTATION/CONSCIOUSNESS: Yes awake, Yes oriented to person, Yes oriented to place and Yes oriented to time HENMT: COMMON NORMALS: normocephalic and atraumatic HEAD & SCALP: normocephalic and atraumatic Neck/C-Spine: COMMON NORMALS: no JVD Resp: COMMON NORMALS: normal respiratory effort, No retractions, No use of accessory muscles and clear to auscultation bilaterally AUSCULTATION: clear to auscultation bilaterally Cardio: COMMON NORMALS: no JVD, regular rate, regular rhythm and No murmurs present (Cardio) RATE: regular rate RHYTHM: regular rhythm Extremity: OTHER: Swelling redness erythema with some vesicles on the medial arch of the right foot there is no obvious punctate lesions the swelling is very limited dorsalis pedis pulse easily palpable in the right foot. Neuro: SENSORIUM/ORIENTATION: Yes oriented to person, Yes oriented to place and Yes oriented to time Skin: COMMON NORMALS: no rashes or lesions noted GENERAL SKIN EXAM: no rashes or lesions noted and no erythema Course Vital Signs: Vital signs: Vital Signs Temperature 98.4 F 03/24/22 16:38 Pulse Rate 81 03/24/22 16:38 Respiratory Rate 16 03/24/22 16:38 Blood Pressure 154/94 03/24/22 16:38 Pulse Oximetry 97 03/24/22 16:38 MDM - Animal Bite Medical Decision Making Examination of the foot I think is more of a Aylin dermatitis. It could possibly be a bite is difficult to tell. I would expect that if you have been bitten by copperhead within a few hours he would have had significant swelling and certainly now active a lot more swelling than he does it looks a little bit more like a Aylin dermatitis with some vesicular development. There is really no way to be definitive. Priscilla cover him with some Bactrim we will also start him on topical steroid and we updated his tetanus follow-up if not improving. Medical Records I reviewed the patient's medical records. Lab Data I reviewed the patient's lab results. Discharge Plan Discharge Patient Disposition: Home Clinical Impression: Skin irritation Condition: Stable Prescriptions: New Bactrim DS 800-160 mg tablet 1 tab PO Q12H 7 Days Qty: 14 0RF triamcinolone acetonide 0.1 % ointment 1 applic topical BID Qty: 30 0RF No Action nitroglycerin [Nitrostat] 0.4 mg tablet, sublingual 0.4 mg sublingual Q5M PRN (Reason: chest pain) Qty: 25 3RF Rx Instructions: do not exceed 3 doses per episode sotalol [Betapace] 80 mg tablet 80 mg PO QPM 0RF sotalol [Betapace] 120 mg tablet 120 mg PO QAM 0RF levothyroxine 50 mcg capsule 50 mcg PO DAILY 0RF aspirin 325 mg tablet,delayed release (DR/EC) 325 mg PO DAILY Qty: 14 0RF Rx Instructions: Call to make follow-up with new provider for further refills atorvastatin 80 mg tablet 80 mg PO DAILY 0RF Discharge Orders: Discharge ED (Routine); Ordered 03/24/22 Ordered By: Gurpreet Owen Referrals: Patti Khan, ENVIRONMENTAL INTERN [Primary Care Provider] - Discharge Diet: Usual diet Discharge Activity: Increase activity as tolerated Patient Instructions: Opioid Safety Activity Restrictions/Additional Instructions: Irritation your skin could either be from a snake bite or may just be a topical reaction. Elevate the affected extremity. Follow-up with your primary care doctor if not improving. Your tetanus was updated at today's visit as well. Coding Level of Care Code ED Wool Fleece Grader for Ambreen Cristina
== END 2022-03-24 17:39 | disposition home or self-care (01) ==
PROVIDERS: Emergency Provider Family Medicine; PCP Nurse Practitioner Family
DX: R21 Rash and other nonspecific skin eruption (principal); Z23 Encounter for immunization
CPT/HCPCS: 90471; 90715; 99283

== ENCOUNTER → 2023-01-28 15:27 | Outpatient (BNVA) | payer OTHER, SELFPAY | PROVIDERS: PCP Nurse Practitioner; Visit Provider Nurse Practitioner | DX: E03.8 Other specified hypothyroidism (principal); I10 Essential (primary) hypertension | CPT/HCPCS: 80053; 80061; 84443 ==

== ENCOUNTER → 2023-12-13 16:48 | Outpatient (BNVA) | payer OTHER, SELFPAY | PROVIDERS: PCP Nurse Practitioner; Visit Provider Nurse Practitioner | DX: I10 Essential (primary) hypertension; E78.2 Mixed hyperlipidemia; E03.8 Other specified hypothyroidism | CPT/HCPCS: 80053; 80061; 84443 ==

== ENCOUNTER 2024-05-14 06:14 | Emergency (ER) | payer OTHER, SELFPAY ==
[2024-05-14 06:33] VITALS: BP 126/93; PULSE 75; RESP 16; TEMP 36.5; O2SAT 99; BMI 41.3
--- NOTE | 2024-05-14 06:45 | ED_ITS ---
HPI - Back Pain/Injury General: Chief Complaint: Back Pain/Injury Stated Complaint: back pain Time Seen by Provider: 05/14/24 06:39 Source: patient Mode of arrival: ambulatory Limitations: no limitations History of Present Illness: 48-year-old male states he has a history of back pain and states that he has been remodeling his house and working on it. He states that since Wednesday he has been having right low back pain. States sharp pain is worse with movement improved with rest he has some radiation down his leg he denies any bowel or bladder incontinence he rates his pain a 6 out of 10 currently. Associated symptoms: Deny abdominal pain, chills, fever(s), nausea or vomiting Review of Systems Const: Denies: fever(s), chills, body aches or change in appetite ENMT: Denies: throat pain or dental pain Card: Denies: chest pain Resp: Denies: dyspnea GI: Denies: abdominal pain, nausea, vomiting or diarrhea Musc: Reports: back pain; Denies: neck pain Skin/Breast: Denies: rash Neuro: Denies: headache(s) PFSH ED PFSH: Medical History Hyperlipidemia, mixed Obesity, morbid, BMI 40.0-49.9 Sciatic neuropathy Right Gout Adult onset hypothyroidism Atrial fibrillation HTN (hypertension) Surgical History History of back surgery Lumbar S/P knee replacement left Family History Father Cancer Lung Lung disease Mother Cancer Colon Hypertension Denies family history of Diabetes CAD (coronary artery disease) Dementia Stroke Social History Smoking and tobacco/nicotine status: current every day tobacco/nicotine user cigarettes Packs smoked per day: 1 Years cigarettes smoked: 20 Second hand smoke exposure: No Alcohol intake: never Substance/Drug Use: never Adopted: No Caregiver/support person: No Lives independently: Yes Household members: spouse Housing: House Marital status: Number of children: 1 Highest education level completed: High School Graduate service: No Current occupational status: employed Current occupation: [employer] Pets and animals: Yes Do you think of yourself as: Straight/Heterosexual Current gender identity: Male Physical Exam Const: COMMON NORMALS: no acute distress, patient oriented x3 and healthy appearing HENMT: COMMON NORMALS: normocephalic and atraumatic HEAD & SCALP: normocephalic and atraumatic Neck/C-Spine: COMMON NORMALS: full ROM and supple Chest: COMMONS NORMALS: normal inspection of the chest Resp: COMMON NORMALS: normal respiratory effort Back/Pelvis: OTHER: Right low back tenderness no saddle anesthesia Extremity: COMMON NORMALS: normal to inspection and full ROM Neuro: COMMON NORMALS: patient oriented x3, moves all extremities and no focal motor deficits Psych: COMMON NORMALS: mental status grossly normal, Normal thought process present and cooperative THOUGHT PROCESS: Normal thought process present Skin: COMMON NORMALS: no rashes or lesions noted and no wounds GENERAL SKIN EXAM: no rashes or lesions noted Course Vital Signs: Vital signs: Vital Signs Temperature 97.7 F 05/14/24 06:33 Pulse Rate 75 05/14/24 06:33 Respiratory Rate 16 05/14/24 06:33 Blood Pressure 126/93 05/14/24 06:33 Pulse Oximetry 99 05/14/24 06:33 Oxygen Delivery Me thod Room Air 05/14/24 06:33 MDM - Back Pain/Injury Medical Decision Making Patient presents here with back pain is likely muscular in origin he is point tender on exam we will start him on steroid along with Robaxin and Naprosyn he is to follow-up with his PCP and return if worsening. Medical Records I reviewed the patient's medical records. Labs I reviewed the patient's lab results. No radiology studies performed this visit Discharge Plan Discharge Patient Disposition: Home Clinical Impression: Low back pain Condition: Stable Prescriptions: New methocarbamol 750 mg tablet 750 mg PO Q6H PRN (Reason: spasms) Qty: 20 0RF prednisone 50 mg tablet 50 mg PO DAILY Qty: 5 0RF Naprosyn 500 mg tablet 500 mg PO BID PRN (Reason: pain) Qty: 20 0RF No Action nitroglycerin [Nitrostat] 0.4 mg tablet, sublingual 0.4 mg sublingual Q5M PRN (Reason: chest pain) Qty: 25 3RF Rx Instructions: do not exceed 3 doses per episode naproxen 500 mg tablet 500 mg PO DAILY PRN (Reason: pain) Qty: 90 0RF aspirin [Adult Low Dose Aspirin] 81 mg tablet,delayed release (DR/EC) 81 mg PO DAILY (DME) pen needle, diabetic 33 gauge x 5/32 needle See Rx Instructions .ROUTE .MEDSUPPLY Qty: 100 5RF Rx Instructions: 1 time day levothyroxine 50 mcg tablet 50 mcg PO DAILY Qty: 90 0RF Victoza 3-Juan 0.6 mg/0.1 mL (18 mg/3 mL) pen injector 2.4 mg SUBCUT DAILY Qty: 18 2RF sotalol [Betapace] 80 mg tablet 80 mg PO QPM Qty: 90 0RF sotalol [Betapace] 120 mg tablet 120 mg PO QAM Qty: 90 0RF valsartan [Diovan] 80 mg tablet 80 mg PO DAILY Qty: 90 0RF atorvastatin 80 mg tablet 80 mg PO DAILY Qty: 90 0RF prednisone 5 mg tablet 5 mg PO DAILY Qty: 7 0RF Discharge Orders: Discharge ED (Routine); Ordered 05/14/24 Ordered By: Katlyn Lugo Referrals: Nicolas Pink, SUPERVISOR VENEER-C [Primary Care Provider] - 4-7 days Discharge Diet: Advance as tolerated Discharge Activity: Resume usual activity Patient Instructions: Back Pain (ED) Coding Level of Care Code ED Server Programmer for Ambreen Cristina
[2024-05-14] MEDS: ketorolac 60 mg/2 mL INJ IM (06:46)
[2024-05-14] MEDS: dexamethasone 10 mg/mL INJ IM (06:46)
== END 2024-05-14 07:23 | disposition home or self-care (01) ==
PROVIDERS: Emergency Provider Emergency Medicine; PCP Nurse Practitioner
DX: M54.50 Low back pain, unspecified (principal); Z79.82 Long term (current) use of aspirin; F17.210 Nicotine dependence, cigarettes, uncomplicated; E78.2 Mixed hyperlipidemia; I10 Essential (primary) hypertension
CPT/HCPCS: 96372; 99284; J1100; J1885

== ENCOUNTER 2024-06-21 09:28 | Emergency (ER) | payer OTHER, SELFPAY ==
[2024-06-21 09:35] VITALS: BP 168/114; PULSE 80; RESP 17; TEMP 36.4; O2SAT 98; BMI 40.3
--- NOTE | 2024-06-21 09:36 | CT_ITS ---
WS: [id number] CT LUMBAR SPINE, noncontrast. HISTORY: R leg radiculopathy TECHNIQUE: Contiguous 2.0 mm axial imaging are performed. Sagittal and coronal reformats are submitte d and reviewed. All CT scans at [facility] use at least one of these dose optimization techni ques: automated exposure control; mA and/or kV adjustment per patient size (includes targeted exams w here dose is matched to clinical indication); or iterative reconstruction. IV contrast: None DLP: 1262.93 mGy.cm COMPARISON: 05/23/2012 As on the prior examination there is a transitional vertebrae at the lumbosacral junction which will be labeled S1 for partial lumbarization of S1. This is the same numbering pattern as utilized in 2012 . Posterior lumbar alignment is normal. No fractures. Facet joint arthritis throughout. L1-2: Osteophytic ridging and annular disc bulging has progressed since the prior study. There is ost eophyte encroachment upon the thecal sac and subarticular recesses which has progressed. Mild central with moderate bilateral subarticular recess and moderate to severe foraminal stenosis in part with t he facet joint arthropathy. L2-3: Mild annular disc bulging with facet arthritis. Narrowing of the thecal sac. At least mild cent ral and bilateral foraminal stenosis. L3-4: Diffuse marked annular disc bulging with facet joint arthropathy. There is severe central, bila teral subarticular recess and foraminal stenosis. Progression since the prior study. L4-5: Diffuse annular disc bulging with marked osteophytic ridging and facet arthritis. Ligamentum fl avum hypertrophy. There is osteophyte encroachment upon the foramina. Severe central, bilateral subar ticular recess and foraminal stenosis. Much greater stenosis RIGHT foramen is exacerbated by an osteo phyte. L5-S1: Diffuse annular disc bulging with marked osteophytic ridging. RIGHT predominant osteophyte dis ease. Mild central with bilateral subarticular recess and moderate foraminal stenosis. There is great er osteophyte encroachment into the RIGHT subarticular recess contacting the RIGHT S1 nerve root. Small LEFT adrenal adenoma. No renal obstruction. Atherosclerosis aorta. CT/CT lumbar spine wo con* [id number] IMPRESSION: 1. Multilevel progressive central, subarticular recess and foraminal stenosis throughout the lumbar spine since 2012. Diffuse lumbar stenosis is probably due to shortened pedicles. Additional facet joint arthritis. 2. L1-2: Mild central with moderate bilateral subarticular recess and moderate to severe foraminal stenosis. 3. L3-4: Severe central, bilateral subarticular recess and foraminal stenosis. 4. L4-5: Severe central, bilateral subarticular recess and foraminal stenosis, RIGHT greater than LEFT. 5. L5-S1: Mild central with at least moderate bilateral subarticular recess an d foraminal stenosis. Greater osteophyte encroachment upon the RIGHT S1 nerve r oot. 6. L2-3: Mild central and bilateral foraminal stenosis.
--- NOTE | 2024-06-21 09:40 | CT_ITS ---
WS: [id number] CT HEAD NONCONTRAST HISTORY: R leg and R arm weakness - several days TECHNIQUE: Contiguous axial imaging performed through the brain in 2.5 mm imaging. Bone and soft tiss ue windows. Sagittal and coronal reformats reviewed. All CT scans at [facility] use at least one of these dose optimization techniques: automated exposure control; mA and/or kV adjustment per pa tient size (includes targeted exams where dose is matched to clinical indication); or iterative recon struction. DLP: 1062.38 mGy.cm COMPARISON: None available. No acute intracranial hemorrhage, midline shift or mass effect. No atrophy or prior infarcts or herniation. Ventricles: Normal size with no hydrocephalus. No inferior displacement of cerebellar tonsils. Paranasal sinuses: Moderate mucoperiosteal thickening in the maxillary sinuses, RIGHT greater than LE FT. Mastoid air cells: Well pneumatized. Calvarium and scalp: Skull is intact with no soft tissue edema or swelling. CT/CT head wo con* [id number] IMPRESSION: 1. No acute intracranial hemorrhage or edema. 2. Moderate maxillary sinusitis. 3. No volume loss or infarct.
--- NOTE | 2024-06-21 09:40 | ECG_ITS ---
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 Measurements Intervals [place] Rate: 74 P: 49 DC: 205 QRS: 39 QRSD: 93 T: 47 QT: 389 QTc: 433 Interpretive Statements SINUS RHYTHM POSSIBLE RIGHT VENTRICULAR CONDUCTION DELAY [RSR (QR) IN V1/V2] Compared to ECG 12/09/2020 13:45:03 No significant changes Electronically Signed On 06-21-2024 17:36:30 CDT by Yola Reno M.D. [id number]
--- NOTE | 2024-06-21 09:45 | W.ED.EXTPRO ---
HPI - Extremity Problem General: Chief complaint: Extremity Injury, Lower Stated complaint: RT foot swelling Time Seen by Provider: 06/21/24 09:35 History of Present Illness: 48-year-old male presents emergency room with several different complaints. Initial complaint was right foot swelling and numbness. States it began after a long car ride last week. No injury to the foot or extremity says has some chronic back problems. Has loss of sensation radiating down his leg into his right great toe. No fever sweats chills no chest pain or shortness of breath he also stated several days ago he had some weakness in his hand that was transient has completely resolved now. Patient does have a history of hyperlipidemia and hypertension as well as atrial fibrillation. No other Associated symptoms: Deny chest pain, fever(s) or rash Related Data Home Medications Medication Instructions Recorded Confirmed aspirin 81 mg tablet,delayed 81 mg PO QAM 07/27/22 06/21/24 release (Adult Low Dose Aspirin) Previous Rx's Medication Instructions Recorded pen needle, diabetic 33 gauge x #100 ea 04/08/23 atorvastatin 80 mg tablet 80 mg PO DAILY #90 tabs 06/08/24 doxepin 10 mg capsule See Rx Instructions PO .COMPLEX 06/08/24 #90 caps exenatide 5 mcg/dose (250 5 mcg (0.02 mL) SUBCUT BID #1.2 mL 06/08/24 mcg/mL)1.2 mL subcutaneous pen injector (Shubhametta) levothyroxine 50 mcg tablet 50 mcg PO DAILY #90 tabs 06/08/24 sotalol 120 mg tablet (Betapace) 120 mg PO QAM #90 tabs 06/08/24 valsartan 160 mg tablet (Diovan) 160 mg PO DAILY #90 tabs 06/08/24 diclofenac sodium 75 mg 75 mg PO Q12H PRN pain #20 tabs 06/21/24 tablet,delayed release prednisone 20 mg tablet 20 mg PO TID #15 tabs 06/21/24 tizanidine 4 mg tablet 4 mg PO Q6H PRN muscle spasticity 06/21/24 #20 tabs Allergies Allergy/AdvReac Type Severity Reaction Status Date / Time No Known Allergies Allergy Verified 06/21/24 09:42 Review of Systems Const: Denies: fever(s) or chills Card: Denies: chest pain Resp: Denies: dyspnea GI: Denies: abdominal pain : Denies: dysuria, urinary frequency or urinary urgency Musc: Denies: neck pain or back pain Skin/Breast: Denies: rash Neuro: Reports: numbness in extremities and weakness in extremities (Right arm hand transient 2-3 days ago) [facility] ED PFSH: Medical History Hyperlipidemia, mixed Obesity, morbid, BMI 40.0-49.9 Sciatic neuropathy Right Gout Adult onset hypothyroidism Atrial fibrillation HTN (hypertension) Surgical History History of back surgery Lumbar S/P knee replacement left Family History Father Cancer Lung Lung disease Mother Cancer Colon Hypertension Denies family history of Diabetes CAD (coronary artery disease) Dementia Stroke Social History Smoking and tobacco/nicotine status: current every day tobacco/nicotine user cigarettes Packs smoked per day: 1 Years cigarettes smoked: 20 Second hand smoke exposure: No Alcohol intake: never Substance/Drug Use: never Adopted: No Caregiver/support person: No Lives independently: Yes Household members: spouse Housing: House Marital status: Number of children: 1 Highest education level completed: High School Graduate service: No Current occupational status: employed Current occupation: [employer] Pets and animals: Yes Do you think of yourself as: Straight/Heterosexual Current gender identity: Male Physical Exam Const: COMMON NORMALS: no acute distress GENERAL APPEARANCE: cooperative and comfortable ORIENTATION/CONSCIOUSNESS: Yes awake, Yes oriented to person, Yes oriented to place and Yes oriented to time HENMT: COMMON NORMALS: normocephalic, atraumatic and hearing grossly normal bilaterally HEAD & SCALP: normocephalic and atraumatic Resp: COMMON NORMALS: normal respiratory effort, No retractions, No use of accessory muscles and clear to auscultation bilaterally AUSCULTATION: clear to auscultation bilaterally Cardio: COMMON NORMALS: regular rate, regular rhythm and No murmurs present (Cardio) RATE: regular rate RHYTHM: regular rhythm GI: COMMON NORMALS: Soft to palpation and No hepatosplenomegaly present AUSCULTATION: Yes normoactive bowel sounds PALPATION: Yes Soft to palpation, No Tenderness to palpation present (GI), No Guarding due to palpation present (GI) and Yes No hepatosplenomegaly present Extremity: COMMON NORMALS: normal to inspection, capillary refill normal, no clubbing, cyanosis or edema, no calf tenderness and no pedal edema OTHER: Negative Homans right leg Neuro: SENSORIUM/ORIENTATION: Yes oriented to person, Yes oriented to place and Yes oriented to time OTHER: Decree sensation in the right toe great toe limited to the right great toe. Dorsal plantarflexion strength against resistance is 5/5. Deep tendon reflexes in the right lower extremities +1/4 at the Achilles tendon +2/4 patellar tendon. Skin: COMMON NORMALS: no rashes or lesions noted GENERAL SKIN EXAM: no rashes or lesions noted Course Vital Signs: Vital signs: Vital Signs Temperature 97.6 F 06/21/24 09:35 Pulse Rate 75 06/21/24 12:11 Respiratory Rate 20 H 06/21/24 12:11 Blood Pressure 157/103 06/21/24 12:11 Pulse Oximetry 100 06/21/24 12:11 Oxygen Delivery Me thod Room Air 06/21/24 09:35 MDM - Extremity (Nontraumatic) Medical Decision Making On exam patient appears to have a lumbar and radicular neuropathy. There is no sign of infection at this time due to the slight elevation in his white count do not believe this reflects an acute infection he has no fever. Wells criteria does not recommend scanning for DVT at this point I do not believe he has a DVT is not having any chest pain or shortness of breath. Will discharge patient home on steroid set him up for an MRI tomorrow and follow-up with orthopedic spine surgery Lab Data 06/21/24 09:51 06/21/24 09:51 Radiology Impressions Lumbar Spine CT 06/21/24 09:36 IMPRESSION: 1. Multilevel progressive central, subarticular recess and foraminal stenosis throughout the lumbar spine since 2011. Diffuse lumbar stenosis is probably due to shortened pedicles. Additional facet joint arthritis. 2. L1-2: Mild central with moderate bilateral subarticular recess and moderate to severe foraminal stenosis. 3. L3-4: Severe central, bilateral subarticular recess and foraminal stenosis. 4. L4-5: Severe central, bilateral subarticular recess and foraminal stenosis, RIGHT greater than LEFT. 5. L5-S1: Mild central with at least moderate bilateral subarticular recess and foraminal stenosis. Greater osteophyte encroachment upon the RIGHT S1 nerve root. 6. L2-3: Mild central and bilateral foraminal stenosis. Head CT 06/21/24 09:40 IMPRESSION: 1. No acute intracranial hemorrhage or edema. 2. Moderate maxillary sinusitis. 3. No volume loss or infarct. Laboratory Results WBC 12.18 10^3/uL (3.29-11.43) H 06/21/24 09:51 RBC 5.07 10^6/uL (3.85-5.65) 06/21/24 09:51 Hgb 16.40 g/dL (11.27-16.99) 06/21/24 09:51 Hct 47.4 % (37-53) 06/21/24 09:51 MCV 93.5 fl (82-101) 06/21/24 09:51 MCH 32.3 pg (27-33) 06/21/24 09:51 MCHC 34.6 g/dL (30-55) 06/21/24 09:51 RDW 12.1 % (12.1-15.1) 06/21/24 09:51 Plt Count 286 10^3/cmm (157-399) 06/21/24 09:51 MPV 9.9 fL (7.4-10.4) 06/21/24 09:51 Neut % (Auto) 55.6 % 06/21/24 09:51 Lymph % (Auto) 29.1 % 06/21/24 09:51 Creek % (Auto) 11.3 % 06/21/24 09:51 Eos % (Auto) 2.9 % 06/21/24 09:51 Baso % (Auto) 0.7 % 06/21/24 09:51 Neut # (Auto) 6.76 10^3/uL (1.8-7.7) 06/21/24 09:51 Lymph # (Auto) 3.6 10^3/uL (0.8-4.8) 06/21/24 09:51 Creek # (Auto) 1.4 10^3/uL (0.2-0.9) H 06/21/24 09:51 Eos # (Auto) 0.4 10^3/uL (0.0-0.8) 06/21/24 09:51 Baso # (Auto) 0.1 10^3/uL (0.0-0.1) 06/21/24 09:51 Nucleated RBC % (auto) 0 % 06/21/24 09:51 Nucleated RBCs # 0.0 /100WBC 06/21/24 09:51 Sodium 139 mmol/L (136-145) 06/21/24 09:51 Potassium 3.9 mmol/L (3.5-5.1) 06/21/24 09:51 Chloride 103 mmol/L (98-107) 06/21/24 09:51 Carbon Dioxide 25 mmol/L (22-29) 06/21/24 09:51 Anion Gap 14.9 (5-19) 06/21/24 09:51 BUN 8 mg/dL (6-20) 06/21/24 09:51 Creatinine 0.6 mg/dL (0.7-1.2) L 06/21/24 09:51 GFR Calculation 143.2 mL/min (90-130) H 06/21/24 09:51 Glucose 84 mg/dL (65-115) 06/21/24 09:51 Calculated Osmolality 286 mOsm/kg (285-295) 06/21/24 09:51 Calcium 8.8 mg/dL (8.5-10.5) 06/21/24 09:51 Total Bilirubin 0.5 mg/dL (0.15-1.2) 06/21/24 09:51 AST 22 U/L (0-40) 06/21/24 09:51 ALT 26 U/L (0-41) 06/21/24 09:51 Alkaline Phosphatase 131 U/L (40-130) H 06/21/24 09:51 Total Protein 8.1 g/dL (6.6-8.7) 06/21/24 09:51 Albumin 4.2 g/dL (3.5-5.2) 06/21/24 09:51 Globulin 3.9 g/dL (1.3-4.6) 06/21/24 09:51 All radiology interpretation(s) finalized by discharge Discharge Plan Discharge Patient Disposition: Home Clinical Impression: Lumbar back pain with radiculopathy affecting left lower extremity Condition: Stable Prescriptions: New tizanidine 4 mg tablet 4 mg PO Q6H PRN (Reason: muscle spasticity) Qty: 20 0RF Rx Instructions: do not exceed 3 doses per 24 hrs prednisone 20 mg tablet 20 mg PO TID Qty: 15 0RF Rx Instructions: 1 p.o. 3 times daily x3 days, 1 p.o. twice daily x2 days, 1 p.o. daily x2 days diclofenac sodium 75 mg tablet,delayed release (DR/EC) 75 mg PO Q12H PRN (Reason: pain) Qty: 20 0RF Discontinued methocarbamol 750 mg tablet 750 mg PO Q6H PRN (Reason: spasms) Qty: 20 0RF No Action Byetta 5 mcg/dose (250 mcg/mL) 1.2 mL pen injector 5 mcg SUBCUT BID Qty: 1.2 2RF atorvastatin 80 mg tablet 80 mg PO DAILY Qty: 90 0RF levothyroxine 50 mcg tablet 50 mcg PO DAILY Qty: 90 0RF sotalol [Betapace] 120 mg tablet 120 mg PO QAM Qty: 90 0RF valsartan [Diovan] 160 mg tablet 160 mg PO DAILY Qty: 90 0RF doxepin 10 mg capsule See Rx Instructions PO .COMPLEX Qty: 90 0RF Rx Instructions: 10-50mg at bedtime orally; for sleep aspirin [Adult Low Dose Aspirin] 81 mg tablet,delayed release (DR/EC) 81 mg PO QAM (DME) pen needle, diabetic 33 gauge x 5/32 needle See Rx Instructions .ROUTE .MEDSUPPLY Qty: 100 5RF Rx Instructions: 1 time day Discharge Orders: Discharge ED (Routine); Ordered 06/21/24 Ordered By: Gurpreet Owen Referrals: Nicolas Pink, [facility] [Primary Care Provider] - Discharge Diet: Usual diet Discharge Activity: Increase activity as tolerated Patient Instructions: Opioid Safety, Pain Management Activity Restrictions/Additional Instructions: Thank you for choosing [facility] for your healthcare needs today. It is very important that you follow up as instructed or that you return to the Emergency Department should you have concerns or if your condition changes or worsens in any way. You were seen today for complaint of pain into your left leg. On exam there are no signs suggestive of a DVT. Your CT did show signs of stenosis in your low spine. A nerve impingement can cause the symptoms that you are having into your leg. Your physical exam findings in your lower leg are consistent with nerve impingement. Will set you up for an outpatient MRI of your lumbar spine and follow-up with orthopedic spine surgery. CT of your head was negative. 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
[2024-06-21 10:11] LABS: Basophils # 0.1 10^3/uL (0.0-0.1); Basophils % 0.7 %; Eosinophils # 0.4 10^3/uL (0.0-0.8); Eosinophils % 2.9 %; Hematocrit 47.4 % (37-53); Lymphocytes # 3.6 10^3/uL (0.8-4.8); Lymphocytes % 29.1 %; Mean Corpuscular HGB Conc 34.6 g/dL (30-55); Mean Corpuscular Hemoglobin 32.3 pg (27-33); Mean Corpuscular Volume 93.5 fl (82-101); Mean Platelet Volume 9.9 fL (7.4-10.4); Monocytes # 1.4 10^3/uL (0.2-0.9); Monocytes % 11.3 %; Neutrophils # 6.76 10^3/uL (1.8-7.7); Neutrophils % 55.6 %; Nucleated Red Blood Cells % 0 %; Platelet Count 286 10^3/cmm (157-399); Red Blood Count 5.07 10^6/uL (3.85-5.65); Red Cell Distribution Width 12.1 % (12.1-15.1); White Blood Count 12.18 10^3/uL (3.29-11.43)
[2024-06-21 10:37] LABS: Alanine Aminotransferase 26 U/L (0-41); Albumin Level 4.2 g/dL (3.5-5.2); Alkaline Phosphatase 131 U/L (40-130); Anion Gap 14.9 (5-19); Aspartate Amino Transferase 22 U/L (0-40); Blood Urea Nitrogen 8 mg/dL (6-20); Calcium 8.8 mg/dL (8.5-10.5); Carbon Dioxide 25 mmol/L (22-29); Chloride 103 mmol/L (98-107); Globulin 3.9 g/dL (1.3-4.6); Glomerular Filtration Rate 143.2 mL/min (90-130); Glucose 84 mg/dL (65-115); Osmolality Calculated 286 mOsm/kg (285-295); Potassium 3.9 mmol/L (3.5-5.1); Sodium 139 mmol/L (136-145); Total Bilirubin 0.5 mg/dL (0.15-1.2); Total Protein 8.1 g/dL (6.6-8.7)
[2024-06-21 11:16] VITALS: BP 140/98; PULSE 70; RESP 23; O2SAT 99
[2024-06-21] MEDS: dexamethasone 10 mg/mL INJ IM (11:51)
[2024-06-21 12:11] VITALS: BP 157/103; PULSE 75; RESP 20; O2SAT 100
--- NOTE | 2024-06-22 16:27 | DCPLANNER ---
faxed order to scheduling for mri
== END 2024-06-21 12:12 | disposition home or self-care (01) ==
PROVIDERS: Emergency Provider Family Medicine; PCP Nurse Practitioner
DX: M54.16 Radiculopathy, lumbar region (principal); Z79.82 Long term (current) use of aspirin; F17.210 Nicotine dependence, cigarettes, uncomplicated; E78.2 Mixed hyperlipidemia; I10 Essential (primary) hypertension
CPT/HCPCS: 70450; 72131; 80053; 85025; 93005; 96372; 99284; J1100

== ENCOUNTER 2024-06-30 16:51 | Inpatient (IN) | payer OTHER, SELFPAY ==
[2024-06-30] VITALS (8 sets, daily range): BP systolic 102–144; BP diastolic 73–89; PULSE 72–139; RESP 12–24; TEMP 36.6; O2SAT 96–99
--- NOTE | 2024-06-30 17:02 | ECG_ITS ---
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 Measurements Intervals [place] Rate: 158 P: 0 NH: 0 QRS: 49 QRSD: 85 T: 62 QT: 267 QTc: 434 Interpretive Statements ATRIAL FIBRILLATION WITH RAPID VENTRICULAR RESPONSE Compared to ECG 06/21/2024 09:50:08 Sinus rhythm no longer present Electronically Signed On 07-02-2024 9:18:06 CDT by Sergio Jimenez M.D. [email or web address] ([email or web address]) montgomery va medical centerLimin Chemicalselect medical specialty hospital - [email or web address]/[id number] f
--- NOTE | 2024-06-30 17:16 | XRR_ITS ---
PROCEDURE INFORMATION: Exam: XR Chest Exam date and time: 06/30/2024 5:41 PM Age: 48 years old Clinical indication: Cough and dyspnea; Additional info: Dyspnea/cough TECHNIQUE: Imaging protocol: Radiologic exam of the chest. Views: 1 view. COMPARISON: CR (CHEST, ) 12/08/2020 2:22 PM FINDINGS: Lungs: Questionable infiltrate versus prominent vascular markings in the medial right lung base. Pleural spaces: Unremarkable. No pleural effusion. No pneumothorax. Heart/Mediastinum: Unremarkable. No cardiomegaly. Bones/joints: Unremarkable. XR/XR chest 1V portable [id number] IMPRESSION: Questionable infiltrate versus prominent vascular markings in the medial right lung base.
[2024-06-30] MEDS: dilTIAZem 100 MG in sodium chloride 0.9% (add-van) 100 ML IV (17:30)
[2024-06-30 17:34] LABS: Basophils # 0.1 10^3/uL (0.0-0.1); Basophils % 0.7 %; Eosinophils # 0.4 10^3/uL (0.0-0.8); Eosinophils % 2.6 %; Hematocrit 45.5 % (37-53); Lymphocytes # 4.6 10^3/uL (0.8-4.8); Lymphocytes % 31.4 %; Mean Corpuscular HGB Conc 35.2 g/dL (30-55); Mean Corpuscular Hemoglobin 32.4 pg (27-33); Mean Corpuscular Volume 92.1 fl (82-101); Mean Platelet Volume 9.4 fL (7.4-10.4); Monocytes # 1.8 10^3/uL (0.2-0.9); Monocytes % 12.2 %; Neutrophils # 7.62 10^3/uL (1.8-7.7); Neutrophils % 52.5 %; Nucleated Red Blood Cells % 0 %; Platelet Count 306 10^3/cmm (157-399); Red Blood Count 4.94 10^6/uL (3.85-5.65); Red Cell Distribution Width 12.6 % (12.1-15.1); White Blood Count 14.51 10^3/uL (3.29-11.43)
[2024-06-30 17:52] LABS: Troponin(5th) Baseline 10 ng/L (0-15)
[2024-06-30 18:06] LABS: Alanine Aminotransferase 37 U/L (0-41); Alkaline Phosphatase 102 U/L (40-130); Aspartate Amino Transferase 24 U/L (0-40); Blood Urea Nitrogen 15 mg/dL (6-20); Calcium 8.7 mg/dL (8.5-10.5); Carbon Dioxide 25 mmol/L (22-29); Chloride 102 mmol/L (98-107); Creatinine Clr Calc Pharmacy 166.6802; Globulin 2.8 g/dL (1.3-4.6); Glomerular Filtration Rate 119.9 mL/min (90-130); Glucose 96 mg/dL (65-115); Osmolality Calculated 287 mOsm/kg (285-295); Sodium 138 mmol/L (136-145); Total Bilirubin 0.3 mg/dL (0.15-1.2); Total Protein 6.8 g/dL (6.6-8.7)
--- NOTE | 2024-06-30 18:06 | ED_ITS ---
HPI - Arrhythmia/Palpitations 2 General: Chief Complaint: Arrhythmia/Palpitations Stated Complaint: irregular heart beat, CP, SOB Time Seen by Provider: 06/30/24 17:15 History of Present Illness: 48 yo male presents with complaints of r apid heart rate and not feeling well. Mild chest discomfort and dyspnea. He is currently taking sotalol, he has not had any medication changes recently. no recent illness. no abd pain. Recent nonproductive cough Related Data Home Medications Medication Instructions Recorded Confirmed aspirin 81 mg tablet,delayed 81 mg PO QAM 07/27/22 06/21/24 release (Adult Low Dose Aspirin) Previous Rx's Medication Instructions Recorded pen needle, diabetic 33 gauge x #100 ea 04/08/23 atorvastatin 80 mg tablet 80 mg PO DAILY #90 tabs 06/08/24 doxepin 10 mg capsule See Rx Instructions PO .COMPLEX 06/08/24 #90 caps exenatide 5 mcg/dose (250 5 mcg (0.02 mL) SUBCUT BID #1.2 mL 06/08/24 mcg/mL)1.2 mL subcutaneous pen injector (Cloudant) levothyroxine 50 mcg tablet 50 mcg PO DAILY #90 tabs 06/08/24 sotalol 120 mg tablet (Betapace) 120 mg PO QAM #90 tabs 06/08/24 valsartan 160 mg tablet (Diovan) 160 mg PO DAILY #90 tabs 06/08/24 diclofenac sodium 75 mg 75 mg PO Q12H PRN pain #20 tabs 06/21/24 tablet,delayed release prednisone 20 mg tablet 20 mg PO TID #15 tabs 06/21/24 tizanidine 4 mg tablet 4 mg PO Q6H PRN muscle spasticity 06/21/24 #20 tabs Allergies Allergy/AdvReac Type Severity Reaction Status Date / Time No Known Allergies Allergy Verified 06/30/24 17:02 Review of Systems 2 Const: Denies: fever(s) or chills Card: Reports: chest pain, palpitations, irregular heart rhythm and swelling of feet/ankles Resp: Reports: dyspnea, non-productive cough and chest congestion GI: Denies: abdominal pain : Denies: dysuria, urinary frequency or urinary urgency Musc: Denies: neck pain or back pain Skin/Breast: Denies: rash PFSH ED 2 PFSH: Medical History Hyperlipidemia, mixed Obesity, morbid, BMI 40.0-49.9 Sciatic neuropathy Right Gout Adult onset hypothyroidism Atrial fibrillation HTN (hypertension) Surgical History History of back surgery Lumbar S/P knee replacement left Family History Father Cancer Lung Lung disease Mother Cancer Colon Hypertension Denies family history of Diabetes CAD (coronary artery disease) Dementia Stroke Social History Smoking and tobacco/nicotine status: current every day tobacco/nicotine user cigarettes Packs smoked per day: 1 Years cigarettes smoked: 20 Second hand smoke exposure: No Alcohol intake: never Substance/Drug Use: never Adopted: No Caregiver/support person: No Lives independently: Yes Household members: spouse Housing: House Marital status: Number of children: 1 Highest education level completed: High School Graduate service: No Current occupational status: employed Current occupation: [employer] Pets and animals: Yes Do you think of yourself as: Straight/Heterosexual Current gender identity: Male Physical Exam 2 Const: GENERAL APPEARANCE: cooperative ORIENTATION/CONSCIOUSNESS: Yes awake, Yes oriented to person, Yes oriented to place and Yes oriented to time HENMT: COMMON NORMALS: normocephalic, atraumatic and hearing grossly normal bilaterally HEAD & SCALP: normocephalic and atraumatic Resp: COMMON NORMALS: normal respiratory effort, No retractions, No use of accessory muscles and clear to auscultation bilaterally AUSCULTATION: clear to auscultation bilaterally Cardio: COMMON NORMALS: No murmurs present (Cardio) RATE: tachycardic R HYTHM: abnormal rhythm irregularly irregular GI: COMMON NORMALS: Soft to palpation and No hepatosplenomegaly present A USCULTATION: Yes normoactive bowel sounds PALPATION: Yes Soft to palpation, No Tenderness to palpation present (GI), No Guarding due to palpation present (GI) and Yes No hepatosplenomegaly present Extremity: COMMON NORMALS: normal to inspection, capillary refill normal, no clubbing, cyanosis or edema, no calf tenderness and no pedal edema Neuro: SENSORIUM/ORIENTATION: Yes oriented to person, Yes oriented to place and Yes oriented to time Skin: COMMON NORMALS: no rashes or lesions noted GENERAL SKIN EXAM: no rashes or lesions noted Course 2 Vital Signs: Vital signs: Vital Signs Temperature 98 F 06/30/24 16:59 Pulse Rate 111 H 06/30/24 19:52 Respiratory Rate 14 06/30/24 19:52 Blood Pressure 102/78 06/30/24 19:52 Pulse Oximetry 99 06/30/24 19:52 Oxygen Delivery Me thod Room Air 06/30/24 19:43 MDM - Arrhythmia/Palpitations Medical Decision Making Chest x-ray shows pneumonia patient does have leukocytosis nonproductive cough. He also has A-fib with RVR. COVID flu RSV negative. Patient cultured started on Levaquin.. A-fib with RVR we initially gave Cardizem bolus and drip he maxed out on a drip without adequate rate control he was then switched to amiodarone with improved rate control. Discussed with hospitalist orders written Lab Data 06/30/24 17:23 06/30/24 17:23 Radiology Impressions Chest X-Ray 06/30/24 17:16 IMPRESSION: Questionable infiltrate versus prominent vascular markings in the medial right lung base. Laboratory Results WBC 14.51 10^3/uL (3.29-11.43) H 06/30/24 17:23 RBC 4.94 10^6/uL (3.85-5.65) 06/30/24 17:23 Hgb 16.00 g/dL (11.27-16.99) 06/30/24 17:23 Hct 45.5 % (37-53) 06/30/24 17:23 MCV 92.1 fl (82-101) 06/30/24 17:23 MCH 32.4 pg (27-33) 06/30/24 17:23 MCHC 35.2 g/dL (30-55) 06/30/24 17:23 RDW 12.6 % (12.1-15.1) 06/30/24 17:23 Plt Count 306 10^3/cmm (157-399) 06/30/24 17:23 MPV 9.4 fL (7.4-10.4) 06/30/24 17:23 Neut % (Auto) 52.5 % 06/30/24 17:23 Lymph % (Auto) 31.4 % 06/30/24 17:23 [place] % (Auto) 12.2 % 06/30/24 17:23 Eos % (Auto) 2.6 % 06/30/24 17:23 Baso % (Auto) 0.7 % 06/30/24 17:23 Neut # (Auto) 7.62 10^3/uL (1.8-7.7) 06/30/24 17:23 Lymph # (Auto) 4.6 10^3/uL (0.8-4.8) 06/30/24 17:23 [place] # (Auto) 1.8 10^3/uL (0.2-0.9) H 06/30/24 17:23 Eos # (Auto) 0.4 10^3/uL (0.0-0.8) 06/30/24 17:23 Baso # (Auto) 0.1 10^3/uL (0.0-0.1) 06/30/24 17:23 Nucleated RBC % (auto) 0 % 06/30/24 17: Nucleated RBCs # 0.0 /100WBC 06/30/24 17:23 Sodium 138 mmol/L (136-145) 06/30/24 17:23 Potassium 4.0 mmol/L (3.5-5.1) 06/30/24 17:23 Chloride 102 mmol/L (98-107) 06/30/24 17:23 Carbon Dioxide 25 mmol/L (22-29) 06/30/24 17:23 Anion Gap 15.0 (5-19) 06/30/24 17:23 BUN 15 mg/dL (6-20) 06/30/24 17:23 Creatinine 0.7 mg/dL (0.7-1.2) 06/30/24 17:23 GFR Calculation 119.9 mL/min (90-130) 06/30/24 17:23 Glucose 96 mg/dL (65-115) 06/30/24 17:23 Calculated Osmolality 287 mOsm/kg (285-295) 06/30/24 17:23 Lactic Acid 1.4 mmol/L (0.5-2.2) 06/30/24 17:28 Calcium 8.7 mg/dL (8.5-10.5) 06/30/24 17:23 Total Bilirubin 0.3 mg/dL (0.15-1.2) 06/30/24 17:23 AST 24 U/L (0-40) 06/30/24 17:23 ALT 37 U/L (0-41) 06/30/24 17:23 Alkaline Phosphatase 102 U/L (40-130) 06/30/24 17:23 Troponin T Baseline 10 ng/L (0-15) 06/30/24 17:23 Troponin T 120 Minute 11.27 ng/L (0-15) 06/30/24 19:34 Delta Troponin T 1.27 ABS# (0-10) 06/30/24 19:34 NT-Pro-B Natriuret Pep 238 pg/mL (0-125) H 06/30/24 17:28 Total Protein 6.8 g/dL (6.6-8.7) 06/30/24 17:23 Albumin 4.0 g/dL (3.5-5.2) 06/30/24 17:23 Globulin 2.8 g/dL (1.3-4.6) 06/30/24 17:23 Procalcitonin 0.04 ng/mL (0-0.5) 06/30/24 17:28 Coronavirus (PCR) Negative (Negative) 06/30/24 19:10 Influenza A (PCR) Negative (Negative) 06/30/24 19:10 Influenza Type B (PCR) Negative (Negative) 06/30/24 19:10 RSV (PCR) Negative (Negative) 06/30/24 19:10 All radiology interpretation(s) finalized by discharge Discharge Plan Discharge Patient Disposition: Admitted As Inpatient Admit Provider: Hardik Ordoñez Clinical Impression: Atrial fibrillation with RVR, Pneumonia Condition: Stable Coding Level of Care Code ED Enrollment Management Manager for Ambreen Cristina
[2024-06-30] MEDS: amiodarone 150 MG/100 ML PREMIX 400 MG IV (18:47)
[2024-06-30] MEDS: levofloxacin-dextrose 5 % 750 MG/150 ML PREMIX 100 MG IV (19:12)
--- NOTE | 2024-06-30 19:18 | ECG_ITS ---
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 Measurements Intervals [place] Rate: 103 P: 0 MD: 0 QRS: 50 QRSD: 89 T: 54 QT: 335 QTc: 440 Interpretive Statements ATRIAL FIBRILLATION WITH RAPID VENTRICULAR RESPONSE Compared to ECG 06/30/2024 16:58:07 No significant changes Electronically Signed On 07-02-2024 9:31:52 CDT by Sergio Jimenez M.D. [id number]
--- NOTE | 2024-06-30 19:43 | P.HP_ITS ---
Providers/Chief Complaint 2 Primary Care Provider: Nicolas Pink, ARLET Chief Complaint: irregular heart beat, CP, SOB History of Present Illness Kerrie Davis is a 48 year old male with a past medical history of hypothyroidism, atrial fibrillation on sotalol, aspirin, who presents [facility] due to complaints of fatigue, malaise, feeling unwell, chest palpitations. Patient does not that he went to work today, started to feel fatigue, malaise, with reported chest palpitations intermittent shortness of breath, feeling unwell. He has been exposed to COVID. Denies any fevers, chills does report a cough. Review of Systems 2 Const: Reports: fatigue and malaise; Denies: fever(s) or chills Card: Denies: chest pain Resp: Reports: dyspnea and non-productive cough Medications/Allergies Home Medications Medication Instructions Recorded Confirmed Last Taken Type aspirin 81 mg tablet,delayed 81 mg PO QAM 07/27/22 06/21/24 06/21/24 History release (Adult Low Dose Aspirin) pen needle, diabetic 33 gauge x #100 ea 04/08/23 06/21/24 Unknown Rx atorvastatin 80 mg tablet 80 mg PO DAILY #90 tabs 06/08/24 06/21/24 06/20/24 Rx doxepin 10 mg capsule See Rx Instructions PO .COMPLEX 06/08/24 06/21/24 06/20/24 Rx #90 caps exenatide 5 mcg/dose (250 5 mcg (0.02 mL) SUBCUT BID #1.2 mL 06/08/24 06/21/24 06/21/24 Rx mcg/mL)1.2 mL subcutaneous pen injector (Ricky) levothyroxine 50 mcg tablet 50 mcg PO DAILY #90 tabs 06/08/24 06/21/24 06/21/24 Rx sotalol 120 mg tablet (Betapace) 120 mg PO QAM #90 tabs 06/08/24 06/21/24 06/21/24 Rx valsartan 160 mg tablet (Diovan) 160 mg PO DAILY #90 tabs 06/08/24 06/21/24 06/21/24 Rx diclofenac sodium 75 mg 75 mg PO Q12H PRN pain #20 tabs 06/21/24 Unknown Rx tablet,delayed release prednisone 20 mg tablet 20 mg PO TID #15 tabs 06/21/24 Unknown Rx tizanidine 4 mg tablet 4 mg PO Q6H PRN muscle spasticity 06/21/24 Unknown Rx #20 tabs Allergies Allergy/AdvReac Type Severity Reaction Status Date / Time No Known Allergies Allergy Verified 06/30/24 17:02 PFSH Acute 2 PFSH: Medical History Hyperlipidemia, mixed Obesity, morbid, BMI 40.0-49.9 Sciatic neuropathy Right Gout Adult onset hypothyroidism Atrial fibrillation HTN (hypertension) Surgical History History of back surgery Lumbar S/P knee replacement left Family History Father Cancer Lung Lung disease Mother Cancer Colon Hypertension Denies family history of Diabetes CAD (coronary artery disease) Dementia Stroke Social History Smoking and tobacco/nicotine status: current every day tobacco/nicotine user cigarettes Packs smoked per day: 1 Years cigarettes smoked: 20 Second hand smoke exposure: No Alcohol intake: never Substance/Drug Use: never Adopted: No Caregiver/support person: No Lives independently: Yes Household members: spouse Housing: House Marital status: Number of children: 1 Highest education level completed: High School Graduate service: No Current occupational status: employed Current occupation: [employer] Pets and animals: Yes Do you think of yourself as: Straight/Heterosexual Current gender identity: Male Vitals/I&O/Wt Last Vital Signs Temp 98 F 06/30/24 16:59 Pulse 119 H 06/30/24 19:00 Resp 14 06/30/24 19:00 BP 111/73 06/30/24 19:00 Pulse Ox 98 06/30/24 19:00 O2 Del Method Room Air 06/30/24 19:00 06/30/24 06/30/24 06/30/24 06:59 14:59 22:59 Intake Total 113.084 / 113.084 Balance 113.084 / 113.084 Weight last 48 hrs Weight 124.738 kg Physical Exam 2 Const: COMMON NORMALS: no acute distress and patient oriented x3 HENMT: COMMON NORMALS: normocephalic HEAD & SCALP: normocephalic Resp: COMMON NORMALS: normal respiratory effort, No retractions, No use of accessory muscles and clear to auscultation bilaterally AUSCULTATION: clear to auscultation bilaterally Cardio: COMMON NORMALS: regular rate, regular rhythm, S1 normal heart sound present and S2 normal heart sound present RATE: tachycardic RHYTHM: a bnormal rhythm HEART SOUNDS: S1 normal heart sound present and S2 normal heart sound present GI: COMMON NORMALS: Normal to inspection, nondistended, normoactive bowel sounds present, Soft to palpation and non-tender Extremity: COMMON NORMALS: no calf tenderness and no pedal edema Neuro: COMMON NORMALS: patient oriented x3, CN's II-XII intact bilaterally and moves all extremities Psych: COMMON NORMALS: mental status grossly normal Data 06/30/24 17:23 06/30/24 17:23 A&P Assessment and plan (1) Atrial fibrillation with RVR: (2) Pneumonia: Plan A-fib with RVR -CHADS2 Vascor is 1, is on aspirin, continue -Start amiodarone drip -Monitor to cardiac stepdown unit -Monitor once, order chest pain Pneumonia -Seen on chest x-ray ? Continue Levaquin ? Continue respiratory panel ? Follow BMP, Pro-Eladio Full code # Lovenox for DVT prophylaxis Attestations 2 Medical Necessity Statement*: Patient requires hospitalization, inpatient, greater than 2 midnights, for A-fib with RVR, pneumonia Diagnoses Atrial fibrillation with RVR I48.91 Pneumonia J18.9
[2024-06-30 19:57] LABS: Lactic Sepsis W/Reflex 1.4 mmol/L (0.5-2.2)
[2024-06-30 19:57] LABS: Covid PCR NEGATIVE (Negative); Influenza A NEGATIVE (Negative); Influenza B NEGATIVE (Negative); Respiratory Syncytial Virus Ce NEGATIVE (Negative)
[2024-06-30 20:07] LABS: NT Pro B Type Natriuretic Pept 238 pg/mL (0-125); Procalcitonin 0.04 ng/mL (0-0.5)
[2024-06-30 20:11] LABS: Troponin 5 2HR 11.27 ng/L (0-15); Troponin 5 2HR Delta 1.27 ABS# (0-10)
[2024-06-30 20:41] LABS: Thyroid Stimulating Hormone 1.98 uIU/mL (0.27-4.20)
[2024-06-30 20:52] LABS: Estmated Average Glucose 111; Hemoglobin A1C 5.5 % (4.0-6.0)
[2024-06-30] MEDS: pantoprazole 40 mg SDV IVP (21:20)
[2024-06-30] MEDS: enoxaparin 40 mg/0.4 mL Syringe SUBCUT (21:20)
[2024-06-30] MEDS: ipratropium-albuterol 3 mL Neb INHALATION (21:48)
[2024-06-30] MEDS: doxepin 10 mg Capsule PO (22:49)
--- NOTE | 2024-06-30 23:16 | ECG_ITS ---
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 Measurements Intervals [place] Rate: 75 P: 62 [place]: 185 QRS: 94 QRSD: 97 T: 21 QT: 405 QTc: 454 Interpretive Statements SINUS RHYTHM BORDERLINE RIGHT AXIS DEVIATION [QRS AXIS > 90] Compared to ECG 06/30/2024 19:18:33 Atrial fibrillation no longer present Electronically Signed On 07-02-2024 9:28:26 CDT by Sergio Jimenez M.D. [id number]
[2024-06-30 23:22] LABS: Troponin 5 6HR 11.21 ng/L (0-15); Troponin 5 6HR Delta 1.21 ng/L (0-12)
[2024-07-01] VITALS (14 sets, daily range): BP systolic 105–148; BP diastolic 58–102; PULSE 61–87; RESP 16–24; TEMP 36.6–36.9; O2SAT 94–97; BMI 41.6
[2024-07-01 01:40] LABS: Add Urine Culture? No; Add Urine Microscopic? YES; Bilirubin Urine Neg (Negative); Blood Urine Neg (Negative); Glucose Urine UA Norm (Normal); Ketones Urine Negative (Negative); Leukocyte Esterase Urine Negative (Negative); Mucus Urine 1+ /hpf; Nitrate Urine Negative (Negative); Protein Urine Trace (Negative); RBC Urine 0-4 /hpf (0-2); Specific Gravity, Urine 1.025 (1.005-1.030); Squamous Epithelial Cell Urine 0-4 /hpf (0-5); Urine Appearance Clear (CLEAR); Urine Color Yellow (Yellow); Urobilinogen Urine Neg (Negative); pH Urine 5 (5-7)
[2024-07-01 03:56] LABS: Basophils # 0.1 10^3/uL (0.0-0.1); Basophils % 0.6 %; Eosinophils # 0.3 10^3/uL (0.0-0.8); Eosinophils % 2.6 %; Hematocrit 42.6 % (37-53); Mean Corpuscular Hemoglobin 32.7 pg (27-33); Mean Corpuscular Volume 95.9 fl (82-101); Mean Platelet Volume 9.7 fL (7.4-10.4); Monocytes # 1.2 10^3/uL (0.2-0.9); Monocytes % 12.2 %; Neutrophils # 5.46 10^3/uL (1.8-7.7); Neutrophils % 53.7 %; Nucleated Red Blood Cells % 0 %; Platelet Count 208 10^3/cmm (157-399); Red Blood Count 4.44 10^6/uL (3.85-5.65); Red Cell Distribution Width 12.8 % (12.1-15.1); White Blood Count 10.15 10^3/uL (3.29-11.43)
[2024-07-01 04:16] LABS: Anion Gap 14.7 (5-19); Blood Urea Nitrogen 13 mg/dL (6-20); Calcium 7.8 mg/dL (8.5-10.5); Carbon Dioxide 23 mmol/L (22-29); Chloride 106 mmol/L (98-107); Creatinine Clr Calc Pharmacy 168.1694; Glomerular Filtration Rate 119.9 mL/min (90-130); Glucose 127 mg/dL (65-115); Osmolality Calculated 292 mOsm/kg (285-295); Potassium 3.7 mmol/L (3.5-5.1); Sodium 140 mmol/L (136-145)
[2024-07-01] MEDS: aspirin 81 mg EC Tablet PO (05:30)
[2024-07-01] MEDS: levothyroxine 50 mcg Tablet PO (05:30)
[2024-07-01] MEDS: atorvastatin 40 mg Tablet 80 MG PO (09:24)
--- NOTE | 2024-07-01 10:09 | P.PN_ITS ---
Subjective 2 Subjective: seen at bedside today. states he is feeling much better. admits to compliance with medication denies CP, palpitations, fatigue able to tolerate PO Medications: Reviewed: Yes Vitals/I&O/Wt Last Vital Signs Temp 97.8 F 07/01/24 08:00 Pulse 73 07/01/24 08:00 Resp 18 07/01/24 08:00 BP 138/83 07/01/24 08:00 Pulse Ox 97 07/01/24 08:00 O2 Del Method Room Air 07/01/24 08:00 06/30/24 07/01/24 07/01/24 22:59 06:59 14:59 Intake Total 713.084 / 713.084 199.980 / 913.064 Balance 713.084 / 713.084 199.980 / 913.064 Weight last 48 hrs Weight 281 lb 15.539 oz Weight 279 lb 8.738 oz Weight 275 lb Physical Exam 2 Narrative: General: AOx3, no acute distress, well developed, Ears: Hearing intact Eyes: conjunctiva clear w/o exudate or hemorrhage. non-icteric, EOM intact, PERRLA. no signs of nystagmus Nose: nasal mucosa pink, septum midline Oropharynx: good dentition CVD: regular rate, irr rhythm, normal S1 and S2, no M/R/G. 2+ pulse x 4 extremities, no JVD, no carotid bruit. Lungs: clear lung sounds in all chaney, no rhonchi, wheezing, rales. Abdomen: NT, ND, soft, NABS. No hepatosplenomegaly, no mass. umbilicus midline w/o herniation Skin:? no rash, vesicles, lesions. Data 07/01/24 12:12 07/01/24 12:12 Micro: Microbiology 06/30/24 19:27 Blood Culture - Preliminary Blood SPECIMEN COLLECTED 06/30/24 19:34 Blood Culture - Preliminary Blood SPECIMEN COLLECTED A&P Assessment and plan (1) Atrial fibrillation with RVR: (2) Pneumonia: Plan A-fib with RVR -CHADS2 Vascor is 1, is on aspirin, continue -amiodarone drip has been weaned down, now in SR. will convert from drip to PO (starting at 6pm 07/01/24) -restart home sotolol pending responce from PO amiodarone. likely to attempt in AM -Monitor to cardiac stepdown unit Pneumonia -Seen on chest x-ray ? Continue Levaquin FULL code Lovenox for DVT prophylaxis Attestations 2 Medical Necessity Statement*: will require 2 overnight stays for Afib RVR Coding Level of Care Code 98103 Diagnoses Atrial fibrillation with RVR I48.91 Pneumonia J18.9
[2024-07-01 13:01] LABS: Basophils # 0.1 10^3/uL (0.0-0.1); Basophils % 0.9 %; Eosinophils # 0.3 10^3/uL (0.0-0.8); Eosinophils % 2.7 %; Hematocrit 42.8 % (37-53); Lymphocytes # 3.1 10^3/uL (0.8-4.8); Lymphocytes % 33.6 %; Mean Corpuscular HGB Conc 33.9 g/dL (30-55); Mean Corpuscular Hemoglobin 32.4 pg (27-33); Mean Corpuscular Volume 95.7 fl (82-101); Monocytes % 10.8 %; Neutrophils # 4.79 10^3/uL (1.8-7.7); Neutrophils % 51.4 %; Nucleated Red Blood Cells % 0 %; Platelet Count 257 10^3/cmm (157-399); Red Blood Count 4.47 10^6/uL (3.85-5.65); Red Cell Distribution Width 12.8 % (12.1-15.1); White Blood Count 9.32 10^3/uL (3.29-11.43)
[2024-07-01 13:18] LABS: Alanine Aminotransferase 32 U/L (0-41); Albumin Level 3.4 g/dL (3.5-5.2); Alkaline Phosphatase 90 U/L (40-130); Anion Gap 13.8 (5-19); Aspartate Amino Transferase 21 U/L (0-40); Blood Urea Nitrogen 11 mg/dL (6-20); Calcium 8.1 mg/dL (8.5-10.5); Carbon Dioxide 22 mmol/L (22-29); Chloride 105 mmol/L (98-107); Glomerular Filtration Rate 143.2 mL/min (90-130); Glucose 117 mg/dL (65-115); Osmolality Calculated 284 mOsm/kg (285-295); Potassium 3.8 mmol/L (3.5-5.1); Sodium 137 mmol/L (136-145); Total Bilirubin 0.3 mg/dL (0.15-1.2); Total Protein 6.4 g/dL (6.6-8.7)
[2024-07-01 13:25] LABS: Creatinine Clr Calc Pharmacy 197.1245
[2024-07-01] MEDS: ipratropium-albuterol 3 mL Neb INHALATION (16:43)
[2024-07-01] MEDS: amiodarone 200 mg Tablet PO (17:24)
[2024-07-01] MEDS: levofloxacin-dextrose 5 % 750 MG/150 ML PREMIX 100 MG IV (17:24)
[2024-07-01] MEDS: enoxaparin 40 mg/0.4 mL Syringe SUBCUT (19:29)
[2024-07-01] MEDS: pantoprazole 40 mg SDV IVP (20:36)
[2024-07-01] MEDS: doxepin 10 mg Capsule PO (20:36)
[2024-07-02 04:00] VITALS: BP 139/96; PULSE 71; RESP 17; TEMP 36.7; O2SAT 99
[2024-07-02 05:23] VITALS: PULSE 67
[2024-07-02] MEDS: aspirin 81 mg EC Tablet PO (05:39)
[2024-07-02] MEDS: levothyroxine 50 mcg Tablet PO (05:39)
[2024-07-02 08:00] VITALS: BP 121/66; PULSE 72; PULSE 75; RESP 16; TEMP 36.5
[2024-07-02] MEDS: losartan 50 mg Tablet PO (08:30)
[2024-07-02] MEDS: atorvastatin 40 mg Tablet 80 MG PO (08:30)
[2024-07-02] MEDS: amiodarone 200 mg Tablet PO (08:30)
[2024-07-02 09:13] VITALS: PULSE 72; RESP 16; O2SAT 98
--- NOTE | 2024-07-02 11:33 | PM.DCS ---
Discharge Providers Date of Admission: 06/30/24 19:47 Date of Discharge: July 02, 2024 Attending Provider at Admission: Hardik Ordoñez MD Attending Provider at Discharge: Austin Aguirre MD Primary Care Provider: ARLET Palomino Diagnoses at Discharge Discharge Diagnosis (1) Atrial fibrillation with RVR: Status: Acute (2) Pneumonia: Status: Acute Reason for Visit Reason for Visit: irregular heart beat, CP, SOB Hospital Course Hospital Course 48-year-old male with paroxysmal A-fib presented to the hospital for A-fib RVR and palpitations, he was not taking sotalol on daily basis, secondary to noncompliance he was experiencing the symptoms, no active chest pain shortness of breath, electrolytes were within normal range, at the time of discharge patient is stating that he is feeling better, his heart rate is well-controlled in 70s, he has converted to sinus rhythm, I would not continue amiodarone that he was started on in the ER. Patient converted to sinus rhythm within few hours of amiodarone infusion. Randy Alcantara is 1 continue aspirin along sotalol. Physical Exam Narrative: Awake and alert Sinus rhythm GCS 15 Pleasant and cooperative Discharge Data Studies Completed and Pending Completed Studies During Hospitalization Category Date Time Status XR chest 1V portable [id number] Stat Exams 06/30/24 17:16 Completed Pending at discharge Category Date Time Status Blood Culture Stat Lab 06/30/24 19:27 Results Radiology Impressions Chest X-Ray 06/30/24 17:16 IMPRESSION: Questionable infiltrate versus prominent vascular markings in the medial right lung base. Laboratory Results WBC 9.32 10^3/uL (3.29-11.43) 07/01/24 12:12 RBC 4.47 10^6/uL (3.85-5.65) 07/01/24 12:12 Hgb 14.50 g/dL (11.27-16.99) 07/01/24 12:12 Hct 42.8 % (37-53) 07/01/24 12:12 MCV 95.7 fl (82-101) 07/01/24 12:12 MCH 32.4 pg (27-33) 07/01/24 12:12 MCHC 33.9 g/dL (30-55) 07/01/24 12:12 RDW 12.8 % (12.1-15.1) 07/01/24 12:12 Plt Count 257 10^3/cmm (157-399) 07/01/24 12:12 MPV 10.0 fL (7.4-10.4) 07/01/24 12:12 Neut % (Auto) 51.4 % 07/01/24 12:12 Lymph % (Auto) 33.6 % 07/01/24 12:12 [place] % (Auto) 10.8 % 07/01/24 12:12 Eos % (Auto) 2.7 % 07/01/24 12:12 Baso % (Auto) 0.9 % 07/01/24 12:12 Neut # (Auto) 4.79 10^3/uL (1.8-7.7) 07/01/24 12:12 Lymph # (Auto) 3.1 10^3/uL (0.8-4.8) 07/01/24 12:12 [place] # (Auto) 1.0 10^3/uL (0.2-0.9) H 07/01/24 12:12 Eos # (Auto) 0.3 10^3/uL (0.0-0.8) 07/01/24 12:12 Baso # (Auto) 0.1 10^3/uL (0.0-0.1) 07/01/24 12:12 Nucleated RBC % (auto) 0 % 07/01/24 12:12 Nucleated RBCs # 0.0 /100WBC 07/01/24 12:12 Sodium 137 mmol/L (136-145) 07/01/24 12:12 Potassium 3.8 mmol/L (3.5-5.1) 07/01/24 12:12 Chloride 105 mmol/L (98-107) 07/01/24 12:12 Carbon Dioxide 22 mmol/L (22-29) 07/01/24 12:12 Anion Gap 13.8 (5-19) 07/01/24 12:12 BUN 11 mg/dL (6-20) 07/01/24 12:12 Creatinine 0.6 mg/dL (0.7-1.2) L 07/01/24 12:12 GFR Calculation 143.2 mL/min (90-130) H 07/01/24 12:12 Glucose 117 mg/dL (65-115) H 07/01/24 12:12 Estimat Average Glucose 111 06/30/24 17:13 Hemoglobin A1c 5.5 % (4.0-6.0) 06/30/24 17:13 Calculated Osmolality 284 mOsm/kg (285-295) L 07/01/24 12:12 Lactic Acid 1.4 mmol/L (0.5-2.2) 06/30/24 17:28 Calcium 8.1 mg/dL (8.5-10.5) L 07/01/24 12:12 Total Bilirubin 0.3 mg/dL (0.15-1.2) 07/01/24 12:12 AST 21 U/L (0-40) 07/01/24 12:12 ALT 32 U/L (0-41) 07/01/24 12:12 Alkaline Phosphatase 90 U/L (40-130) 07/01/24 12:12 Troponin T Baseline 10 ng/L (0-15) 06/30/24 17:23 Troponin T 120 Minute 11.27 ng/L (0-15) 06/30/24 19:34 Delta Troponin T 1.27 ABS# (0-10) 06/30/24 19:34 Troponin T Hi Sens 6Hr 11.21 ng/L (0-15) 06/30/24 22:44 Troponin T Hi Sens 6Hr Delta 1.21 ng/L (0-12) 06/30/24 22:44 NT-Pro-B Natriuret Pep 238 pg/mL (0-125) H 06/30/24 17:28 Total Protein 6.4 g/dL (6.6-8.7) L 07/01/24 12:12 Albumin 3.4 g/dL (3.5-5.2) L 07/01/24 12:12 Globulin 3.0 g/dL (1.3-4.6) 07/01/24 12:12 Procalcitonin 0.04 ng/mL (0-0.5) 06/30/24 17:28 TSH 1.98 uIU/mL (0.27-4.20) 06/30/24 19:34 Urine Color Yellow (Yellow) 07/01/24 01:20 Urine Appearance Clear (CLEAR) 07/01/24 01:20 Urine pH 5 (5-7) 07/01/24 01:20 Ur Specific [place] 1.025 (1.005-1.030) 07/01/24 01:20 Urine Protein Trace (Negative) 07/01/24 01:20 Urine Glucose (UA) Norm (Normal) 07/01/24 01:20 Urine Ketones Negative (Negative) 07/01/24 01:20 Urine Blood Neg (Negative) 07/01/24 01:20 Urine Nitrate Negative (Negative) 07/01/24 01:20 Urine Bilirubin Neg (Negative) 07/01/24 01:20 Urine Urobilinogen Neg mg/dL (Negative) 07/01/24 01:20 Ur Leukocyte Esterase Negative (Negative) 07/01/24 01:20 Urine RBC 0-4 /hpf (0-2) H 07/01/24 01:20 Urine WBC None /hpf (0-5) 07/01/24 01:20 Ur Squamous Epith Cells 0-4 /hpf (0-5) H 07/01/24 01:20 Amorphous Sediment Not Reportable 07/01/24 01:20 Urine Bacteria None /hpf (NONE) 07/01/24 01:20 Urine Mucus 1+ /hpf 07/01/24 01:20 Coronavirus (PCR) Negative (Negative) 06/30/24 19:10 Influenza A (PCR) Negative (Negative) 06/30/24 19:10 Influenza Type B (PCR) Negative (Negative) 06/30/24 19:10 RSV (PCR) Negative (Negative) 06/30/24 19:10 Vitals Last Vital Signs Temp 97.7 F 07/02/24 08:00 Pulse 72 07/02/24 09:13 Resp 16 07/02/24 09:13 BP 121/66 07/02/24 08:00 Pulse Ox 98 07/02/24 09:13 O2 Del Method Room Air 07/02/24 09:13 Discharge Plan Discharge Patient Disposition: Home Condition: Stable Prescriptions: Continued [place] 5 mcg/dose (250 mcg/mL) 1.2 mL pen injector 5 mcg SUBCUT BID Qty: 1.2 2RF atorvastatin 80 mg tablet 80 mg PO DAILY Qty: 90 0RF levothyroxine 50 mcg tablet 50 mcg PO DAILY Qty: 90 0RF sotalol [Betapace] 120 mg tablet 120 mg PO QAM Qty: 90 0RF valsartan [Diovan] 160 mg tablet 160 mg PO DAILY Qty: 90 0RF doxepin 10 mg capsule See Rx Instructions PO .COMPLEX Qty: 90 0RF Rx Instructions: 10-50mg at bedtime orally; for sleep aspirin [Adult Low Dose Aspirin] 81 mg tablet,delayed release (DR/EC) 81 mg PO QAM (DME) pen needle, diabetic 33 gauge x 5/32 needle See Rx Instructions .ROUTE .MEDSUPPLY Qty: 100 5RF Rx Instructions: 1 time day tizanidine 4 mg tablet 4 mg PO Q6H PRN (Reason: muscle spasticity) Qty: 20 0RF Rx Instructions: do not exceed 3 doses per 24 hrs diclofenac sodium 75 mg tablet,delayed release (DR/EC) 75 mg PO Q12H PRN (Reason: pain) Qty: 20 0RF sotalol 80 mg tablet 80 mg PO BEDTIME Discharge Orders: Discharge Order (Routine); Ordered 07/02/24 Ordered By: Austin Aguirre Referrals: Nicolas Pink, BIOSTATISTICS TEACHER-C [Primary Care Provider] - 3 weeks (We have notified your physician's clinic of the need for a follow-up appointment to be scheduled. If you have not heard from them within the next 2 business days, please call them directly. ) Patient Instructions: A-fib (Atrial Fibrillation) (DC), Opioid Safety, Pneumonia Stoplight Discharge Attestations Time Spent in Discharge Care*: less than 30 min Quality Metrics Clinical Quality Measures [ No reported AMI, CVA or VTE this stay] Coding Level of Care Code Acute Code for [facility] Diagnoses Atrial fibrillation with RVR I48.91 Pneumonia J18.9
[2024-07-02 11:44] VITALS: BP 142/85; TEMP 36.6
[2024-07-02 12:40] VITALS: BP 142/85; TEMP 36.6
== END 2024-07-02 10:45 | disposition home or self-care (01) | DRG 308 ==
LOC: ER 18:19 → CSU 19:48
PROVIDERS: Family Medicine; Admitting Provider Family Medicine; Emergency Provider Family Medicine; PCP Nurse Practitioner; Visit Provider Internal Medicine
DX: I48.0 Paroxysmal atrial fibrillation (principal); J18.9 Pneumonia, unspecified organism; E03.9 Hypothyroidism, unspecified; Z96.652 Presence of left artificial knee joint; F17.210 Nicotine dependence, cigarettes, uncomplicated; Z20.822 Contact with and (suspected) exposure to COVID-19; E66.01 Morbid (severe) obesity due to excess calories; E78.2 Mixed hyperlipidemia; I10 Essential (primary) hypertension; Z68.41 Body mass index [BMI] 40.0-44.9, adult; Z79.899 Other long term (current) drug therapy; Z79.82 Long term (current) use of aspirin; Z79.890 Hormone replacement therapy; Z11.52 Encounter for screening for COVID-19; Z91.148 Patient's other noncompliance with medication regimen for other reason
CPT/HCPCS: 0241U; 36415; 71045; 80048; 80053; 81001; 83036; 83605; 83880; 84145; 84443; 84484; 85025; 87040; 93005; 94640; 94664; 96365; 96366; 96367; 96372; 96376; 99285; A4222; J0283; J1650; J1956; J2470; J3490

== ENCOUNTER 2024-07-07 14:07 | Outpatient (CLI) | payer OTHER, SELFPAY ==
--- NOTE | 2024-07-07 14:11 | MR_ITS ---
WS: [id number] MRI LUMBAR SPINE NONCONTRAST TECHNIQUE: Sagittal T1, T2 and STIR imaging. Axial T1 and T2 imaging. CLINICAL INFORMATION: STENOSIS COMPARISON: MRI lumbar 2019 FINDINGS: Mild lumbar curve. No acute compression. Congenital spinal canal narrowing contributes to the stenosi s. Disc osteophyte protrusion on the white sugar supervisor imaging at C5-6 with indentation on the cervical cord with myelomalacia. Recommend cervical spine MRI in further evaluation. This is progressed since 2019 with moderate to severe cervical stenosis. L1-L2: Mild disc bulging with slight impingement RIGHT subarticular recess. Moderate facet arthropath y. Mild RIGHT foraminal narrowing. L2-L3: Mild annular bulging with slight effacement of the ventral thecal sac. Mild central canal sten osis. Moderate facet arthropathy. Foramen are patent. L3-L4: Mild disc bulging with moderate central canal stenosis. Impingement on the subarticular recess . Moderate facet arthropathy. Foramen are patent. L4-L5: Mild disc bulging with severe central canal stenosis. Impingement subarticular recess bilatera lly. Moderate LEFT foraminal narrowing. Mild RIGHT foraminal narrowing. Impingement on the exiting LE FT L4 nerve root. Moderate facet arthropathy with ligamentum flavum hypertrophy. L5-S1: Shallow RIGHT paracentral protrusion impinges the RIGHT S1 nerve root in the subarticular rece ss. Mild RIGHT and no significant LEFT foraminal narrowing. Moderate facet arthropathy. Posterior pro jecting LEFT synovial cyst does not affect the thecal sac. Visualized pelvic bony structures: Normal. Paravertebral soft tissues: Normal. MR/MR lumbar spine wo con* [id number] IMPRESSION: 1. Congenital central canal stenosis lumbar spine contributes to narrowing. 2. Disc osteophyte protrusion on the white sugar supervisor imaging at C5-6 with indentation on the cervical cord and myelomalacia. Recommend cervical spine MRI in further ev aluation. This is progressed since 2019 with moderate to severe cervical stenos is. 3. Progressed spinal canal stenosis throughout the lumbar spine with moderate stenosis L3-4 and severe L4-5 with impingement subarticular recess bilaterally . 4. Mild to moderate central canal stenosis L2-3. 5. Shallow RIGHT paracentral protrusion L1-2 impinges the RIGHT subarticular r ecess. 6. Moderate LEFT L4-5 foraminal narrowing with impingement on the exiting LEFT L4 nerve root. 7. Disc bulging L5-S1 impinges the traversing RIGHT S1 nerve root in the subar ticular recess. 8. Moderate facet arthropathy L3-L5.
== END 2024-07-07 14:08 | disposition home or self-care (01) ==
LOC: RAD 14:07
PROVIDERS: PCP Nurse Practitioner; Visit Provider Family Medicine
DX: M48.061 Spinal stenosis, lumbar region without neurogenic claudication (principal); M25.78 Osteophyte, vertebrae; M50.20 Other cervical disc displacement, unspecified cervical region; M54.16 Radiculopathy, lumbar region; M99.63 Osseous and subluxation stenosis of intervertebral foramina of lumbar region; M51.37 Other intervertebral disc degeneration, lumbosacral region; M47.896 Other spondylosis, lumbar region
CPT/HCPCS: 72148

== ENCOUNTER → 2024-07-13 15:38 | Outpatient (BNVA) | payer OTHER, SELFPAY | PROVIDERS: PCP Nurse Practitioner; Referring Provider Family Medicine; Visit Provider Orthopaedic Surgery | DX: M54.9 Dorsalgia, unspecified (principal); M48.062 Spinal stenosis, lumbar region with neurogenic claudication | CPT/HCPCS: 72110 ==

== ENCOUNTER 2024-10-05 18:34 | Emergency (ER) | payer OTHER, SELFPAY ==
--- NOTE | 2024-10-05 18:41 | ECG_ITS ---
[facility] Test Date: 2024-10-05 Pat Name: Kerrie Davis Department: Room: Gender: Male Sludge Control Attendant: : 1975 Requested By: Ruthie Sanchez Order Number: [id number] Donald MD: Yola Reno M.D. Measurements Intervals [place] Rate: 87 P: 54 NE: 189 QRS: 29 QRSD: 95 T: 57 QT: 362 QTc: 437 Interpretive Statements SINUS RHYTHM POSSIBLE RIGHT VENTRICULAR CONDUCTION DELAY [RSR (QR) IN V1/V2] Compared to ECG 07/01/2024 00:18:13 No significant changes Electronically Signed On 10-05-2024 23:51:30 FORM BUILDER HELPER by Yola Reno M.D. [email or web address]
[2024-10-05 18:43] VITALS: BP 112/81; PULSE 89; TEMP 36.4; O2SAT 98; BMI 41.9
--- NOTE | 2024-10-05 19:25 | ED_ITS ---
HPI - Arrhythmia/Palpitations 2 General: Chief Complaint: Arrhythmia/Palpitations Stated Complaint: in afib pulse racing weak Time Seen by Provider: 10/05/24 19:13 History of Present Illness: 48-year-old male with a history of atria l fibrillation and hypertension who presents emergency room with palpitations. He says he was laying down in felt like his heart was beating hard and fast. He says it is now resolved. He says he has some generalized weakness, particularly in his neck and arms. No fevers. No chest pain. No abdominal pain. No nausea or vomiting. No altered mental status. No focal motor deficits Related Data Previous Rx's Medication Instructions Recorded pen needle, diabetic 33 gauge x #100 ea 04/08/23 aspirin 325 mg tablet 325 mg PO DAILY #90 tabs 07/04/24 diclofenac sodium 75 mg 75 mg PO .in AM PRN pain #30 tabs 09/25/24 tablet,delayed release doxepin 10 mg capsule 10 mg PO .at bedtime #90 caps 09/25/24 levothyroxine 50 mcg tablet 50 mcg PO DAILY #90 tabs 09/25/24 methocarbamol 750 mg tablet 750 mg PO .every 12 hours #180 tabs 09/25/24 sotalol 120 mg tablet (Betapace) 120 mg PO QAM #90 tabs 09/25/24 sotalol 80 mg tablet 80 mg PO BEDTIME #90 tabs 09/25/24 valsartan 160 mg tablet (Diovan) 160 mg PO DAILY #90 tabs 09/25/24 Allergies Allergy/AdvReac Type Severity Reaction Status Date / Time No Known Allergies Allergy Verified 10/05/24 18:47 Review of Systems 2 Narrative: Constitutional symptoms: Negative except as documented in HPI. Skin symptoms: Negative except as documented in HPI. Eye symptoms: Negative except as documented in HPI. ENMT symptoms: Negative except as documented in HPI. Respiratory symptoms: Negative except as documented in HPI. Cardiovascular symptoms: Negative except as documented in HPI. Gastrointestinal symptoms: Negative except as documented in HPI. Genitourinary symptoms: Negative except as documented in HPI. Musculoskeletal symptoms: Negative except as documented in HPI. Neurologic symptoms: Negative except as documented in HPI. Psychiatric symptoms: Negative except as documented in HPI. Endocrine symptoms: Negative except as documented in HPI. PFSH ED 2 PFSH: Medical History Pneumonia Atrial fibrillation with RVR Hyperlipidemia, mixed Obesity, morbid, BMI 40.0-49.9 Sciatic neuropathy Right Gout Adult onset hypothyroidism Atrial fibrillation HTN (hypertension) Surgical History History of back surgery Lumbar S/P knee replacement left Family History Father Cancer Lung Lung disease Mother Cancer Colon Hypertension Denies family history of Diabetes CAD (coronary artery disease) Dementia Stroke Social History Smoking and tobacco/nicotine status: current every day tobacco/nicotine user cigarettes Packs smoked per day: 1 Years cigarettes smoked: 20 Second hand smoke exposure: No Alcohol intake: never Substance/Drug Use: never Adopted: No Caregiver/support person: No Lives independently: Yes Household members: spouse Housing: House Marital status: Number of children: 1 Highest education level completed: High School Graduate service: No Current occupational status: employed Current occupation: [employer] Pets and animals: Yes Do you think of yourself as: Straight/Heterosexual Current gender identity: Male Physical Exam 2 Narrative: EXAM NARRATIVE: General: Alert, no acute distress. Skin: Warm, dry. Head: Normocephalic, atraumatic. Neck: Supple, trachea midline. Eye: Extraocular movements are intact. Ears, nose, mouth and throat: mucosa moist. Cardiovascular: Regular, Normal peripheral perfusion. Respiratory: Lungs are clear to auscultation, respirations are non-labored, breath sounds are equal, Symmetrical chest wall expansion. Gastrointestinal: Soft, Nontender, Non distended Musculoskeletal: Normal ROM, no deformity. Neurological: Alert and oriented, No focal neurological deficit observed. Psychiatric: Cooperative, appropriate mood & affect. Course 2 Vital Signs: Vital signs: Vital Signs Temperature 97.6 F 10/05/24 18:43 Pulse Rate 82 10/05/24 20:24 Respiratory Rate 19 H 10/05/24 20:00 Blood Pressure 121/86 10/05/24 20:24 Pulse Oximetry 97 10/05/24 20:24 Oxygen Delivery Me thod Room Air 10/05/24 20:00 MDM - Arrhythmia/Palpitations Medical Decision Making Medical decision making: Differential diagnosis including but not limited to and based on the above HPI, review of systems and physical exam: for patient with palpitations: atrial fibrillation with rapid ventricular response. ventricular tachycardia. sinus tachycardia. PVCs. also concern for underlying issues causing tachycardia. Infection, electrolyte abnormalities and thyroid issues Orders placed to evaluate differential diagnosis based on the above differential, HPI and physical exam EKG: Time 1841. Rate 87. Normal sinus rhythm, No ST-T changes, no ectopy, normal NC & QRS intervals, This was reviewed and interpreted by myself the ER physician at 1845 Lab Review: Laboratory results were reviewed and interpreted by myself the emergency room physician. Lab works unremarkable. Mild leukocytosis. No anemia. No renal failure. Potassium is normal. Magnesium and TSH are normal. I reviewed the patient's medical record. Reexamination: Patient remained stable. No increased work of breathing. No altered mental status. No focal motor deficits. Assessment and plan: Palpitations - Discharged home - Discussed plan with patient. Answered any questions. - Evaluation and treatment of this problem were appropriate in the emergency setting. Lab Data 10/05/24 19:24 10/05/24 19:24 Laboratory Results WBC 13.44 10^3/uL (3.29-11.43) H 10/05/24 19: RBC 4.71 10^6/uL (3.85-5.65) 10/05/24 19:24 Hgb 15.30 g/dL (11.27-16.99) 10/05/24 19: Hct 43.3 % (37-53) 10/05/24 19: MCV 91.9 fl (82-101) 10/05/24 19: MCH 32.5 pg (27-33) 10/05/24 19: MCHC 35.3 g/dL (30-55) 10/05/24 19: RDW 12.1 % (12.1-15.1) 10/05/24 19:24 Plt Count 252 10^3/cmm (157-399) 10/05/24 19: MPV 10.0 fL (7.4-10.4) 10/05/24 19: Neut % (Auto) 61.6 % 10/05/24 19:24 Lymph % (Auto) 26.3 % 10/05/24 19:24 [place] % (Auto) 8.8 % 10/05/24 19:24 Eos % (Auto) 2.3 % 10/05/24 19:24 Baso % (Auto) 0.7 % 10/05/24 19:24 Neut # (Auto) 8.28 10^3/uL (1.8-7.7) H 10/05/24 19:24 Lymph # (Auto) 3.5 10^3/uL (0.8-4.8) 10/05/24 19:24 [place] # (Auto) 1.2 10^3/uL (0.2-0.9) H 10/05/24 19:24 Eos # (Auto) 0.3 10^3/uL (0.0-0.8) 10/05/24 19:24 Baso # (Auto) 0.1 10^3/uL (0.0-0.1) 10/05/24 19:24 Nucleated RBC % (auto) 0 % 10/05/24 19:24 Nucleated RBCs # 0.0 /100WBC 10/05/24 19:24 Sodium 137 mmol/L (136-145) 10/05/24 19:24 Potassium 3.9 mmol/L (3.5-5.1) 10/05/24 19:24 Chloride 105 mmol/L (98-107) 10/05/24 19:24 Carbon Dioxide 24 mmol/L (22-29) 10/05/24 19:24 Anion Gap 11.9 (5-19) 10/05/24 19:24 BUN 18 mg/dL (6-20) 10/05/24 19:24 Creatinine 1.0 mg/dL (0.7-1.2) 10/05/24 19:24 GFR Calculation 79.4 mL/min (90-130) L 10/05/24 19:24 Glucose 101 mg/dL (65-115) 10/05/24 19:24 Calculated Osmolality 286 mOsm/kg (285-295) 10/05/24 19:24 Calcium 9.2 mg/dL (8.5-10.5) 10/05/24 19:24 Magnesium 2.0 mg/dL (1.7-2.3) 12/19/24 19:24 Total Bilirubin 0.3 mg/dL (0.15-1.2) 10/05/24 19:24 AST 23 U/L (0-40) 10/05/24 19:24 ALT 27 U/L (0-41) 10/05/24 19:24 Alkaline Phosphatase 105 U/L (40-130) 10/05/24 19:24 Troponin T Baseline 13 ng/L (0-15) 10/05/24 19:24 Total Protein 6.9 g/dL (6.6-8.7) 10/05/24 19:24 Albumin 4.0 g/dL (3.5-5.2) 10/05/24 19:24 Globulin 2.9 g/dL (1.3-4.6) 10/05/24 19:24 TSH 1.72 uIU/mL (0.27-4.20) 10/05/24 19:24 No radiology studies performed this visit Discharge Plan Discharge Patient Disposition: Home Clinical Impression: Palpitations Condition: Stable Prescriptions: No Action aspirin 325 mg tablet 325 mg PO DAILY Qty: 90 3RF (DME) pen needle, diabetic 33 gauge x 5/32 needle See Rx Instructions .ROUTE .MEDSUPPLY Qty: 100 5RF Rx Instructions: 1 time day diclofenac sodium 75 mg tablet,delayed release (DR/EC) 75 mg PO .in AM PRN (Reason: pain) Qty: 30 2RF doxepin 10 mg capsule 10 mg PO .at bedtime Qty: 90 0RF levothyroxine 50 mcg tablet 50 mcg PO DAILY Qty: 90 0RF methocarbamol 750 mg tablet 750 mg PO .every 12 hours Qty: 180 0RF Rx Instructions: as needed for muscle pain sotalol [Betapace] 120 mg tablet 120 mg PO QAM Qty: 90 0RF sotalol 80 mg tablet 80 mg PO BEDTIME Qty: 90 0RF valsartan [Diovan] 160 mg tablet 160 mg PO DAILY Qty: 90 0RF Discharge Orders: Discharge ED (Routine); Ordered 10/05/24 Ordered By: Ruthie Gonzalez Referrals: Nicolas Pink, WIRE MESH FILTER FABRICATOR-C [Primary Care Provider] - Discharge Diet: Usual diet Discharge Activity: Increase activity as tolerated Patient Instructions: Heart Palpitations (ED), Opioid Safety, Pain Management Activity Restrictions/Additional Instructions: [facility] you [facility] today. Please realize this is an emergency room and that we are providing you with a medical screening exam and this may not be complete and all inclusive of all the testing and or work up that you may need to determine your ailment or severity of your illness. You have been screened and evaluated and felt safe for discharge. Health conditions do change or evolve sometimes and as such it is important that you follow up with your Primary Doctor to be re checked, 3-5 days is a general good time frame for follow up. You are always welcome to return to the ED for re assessment if your symptoms are worsening or you have new concerns Coding Level of Care Code ED Fagoting Machine Operator for Ambreen Cristina
[2024-10-05 19:28] VITALS: BP 121/69; PULSE 86; RESP 16; O2SAT 96
[2024-10-05 19:33] LABS: Basophils # 0.1 10^3/uL (0.0-0.1); Basophils % 0.7 %; Eosinophils # 0.3 10^3/uL (0.0-0.8); Eosinophils % 2.3 %; Hematocrit 43.3 % (37-53); Lymphocytes # 3.5 10^3/uL (0.8-4.8); Lymphocytes % 26.3 %; Mean Corpuscular HGB Conc 35.3 g/dL (30-55); Mean Corpuscular Hemoglobin 32.5 pg (27-33); Mean Corpuscular Volume 91.9 fl (82-101); Monocytes # 1.2 10^3/uL (0.2-0.9); Monocytes % 8.8 %; Neutrophils # 8.28 10^3/uL (1.8-7.7); Neutrophils % 61.6 %; Nucleated Red Blood Cells % 0 %; Platelet Count 252 10^3/cmm (157-399); Red Blood Count 4.71 10^6/uL (3.85-5.65); Red Cell Distribution Width 12.1 % (12.1-15.1); White Blood Count 13.44 10^3/uL (3.29-11.43)
[2024-10-05 19:54] LABS: Troponin(5th) Baseline 13 ng/L (0-15)
[2024-10-05 20:00] VITALS: BP 121/86; PULSE 80; RESP 19; O2SAT 95
[2024-10-05 20:09] LABS: Alanine Aminotransferase 27 U/L (0-41); Alkaline Phosphatase 105 U/L (40-130); Aspartate Amino Transferase 23 U/L (0-40); Blood Urea Nitrogen 18 mg/dL (6-20); Calcium 9.2 mg/dL (8.5-10.5); Carbon Dioxide 24 mmol/L (22-29); Chloride 105 mmol/L (98-107); Globulin 2.9 g/dL (1.3-4.6); Glucose 101 mg/dL (65-115); Osmolality Calculated 286 mOsm/kg (285-295); Sodium 137 mmol/L (136-145); Thyroid Stimulating Hormone 1.72 uIU/mL (0.27-4.20); Total Bilirubin 0.3 mg/dL (0.15-1.2); Total Protein 6.9 g/dL (6.6-8.7)
[2024-10-05 20:12] LABS: Anion Gap 11.9 (5-19); Creatinine Clr Calc Pharmacy 118.7398; Glomerular Filtration Rate 79.4 mL/min (90-130); Potassium 3.9 mmol/L (3.5-5.1)
[2024-10-05 20:24] VITALS: BP 121/86; PULSE 82; O2SAT 97
== END 2024-10-05 20:25 | disposition home or self-care (01) ==
PROVIDERS: Emergency Provider Emergency Medicine; PCP Nurse Practitioner
DX: R00.2 Palpitations (principal); F17.210 Nicotine dependence, cigarettes, uncomplicated; I10 Essential (primary) hypertension; E78.5 Hyperlipidemia, unspecified
CPT/HCPCS: 80053; 83735; 84443; 84484; 85025; 93005; 99284

== ENCOUNTER 2024-12-27 13:56 | Emergency (ER) | payer OTHER, SELFPAY ==
[2024-12-27 13:59] VITALS: BP 134/92; PULSE 85; RESP 18; TEMP 36.6; O2SAT 97; BMI 42.8
[2024-12-27 15:05] VITALS: BP 182/116; O2SAT 98
[2024-12-27] MEDS: orphenadrine 30 mg/mL Inj 2 mL 60 MG IM (15:21)
[2024-12-27] MEDS: ketorolac 60 mg/2 mL INJ IM (15:21)
[2024-12-27] MEDS: dexamethasone 10 mg/mL INJ IM (15:21)
--- NOTE | 2024-12-27 15:21 | W.ED.BACK ---
HPI - Back Pain/Injury General: Chief Complaint: Back Pain/Injury Stated Complaint: back pain Time Seen by Provider: 12/27/24 14:40 Source: patient Mode of arrival: ambulatory Limitations: no limitations History of Present Illness: Patient is a 49-year-old male who presents emergency department complaining of right lower back pain since last Wednesday. He states the pain began after he lifted a heavy fridge, has been persisting ever since. 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 Does report a history of sciatica as well as degenerative disc disease, history of kyphoplasty of lumbar spine. Also notes he tried to follow-up with Dr. Rosario today but he is out of the office, does have upcoming appointments for persistent back pain. He is noting that the pain is primarily to right paralumbar muscles and radiates down the right anterior leg, but also today began having pain radiating to his right testicle. Denies any scrotal swelling, or urinary symptoms. Denies history of kidney stones. He is here stating he just wants relief of pain as he states he has to go back to work tomorrow. He has been taking 20 mg of prednisone that was prescribed on Wednesday for the pain. No bowel or bladder incontinence or saddle anesthesia. Does not report any fevers, trauma, unexplained weight loss, neurological symptoms, IVDU, steroid use, or history of cancer. MD elicited complaint: back pain Pertinent past history: prior back pain Onset (ago): day(s) Timing: constant Severity: severe Similar Symptoms Previously: Yes Quality: dull and aching Location: right lower back Radiation: groin and right upper leg Exacerbating factors: movement Relieving factors: immobilization Context: while lifting Associated symptoms: Deny abdominal pain, difficulty walking, fecal incontinence, fever(s) or syncope Treatments prior to arrival: other medications (Prednisone) Related Data Previous Rx's ?Medication ?Instructions ?Recorded pen needle, diabetic 33 gauge x #100 ea 04/08/23 aspirin 325 mg tablet 325 mg PO DAILY #90 tabs 07/04/24 bupropion HCl 100 mg tablet,12 hr 100 mg PO Q12H #60 tabs 12/11/24 sustained-release (Wellbutrin SR) diclofenac sodium 75 mg 75 mg PO .in AM PRN pain #30 tabs 12/11/24 tablet,delayed release doxepin 10 mg capsule 10 mg PO .at bedtime #90 caps 12/11/24 levothyroxine 50 mcg tablet 50 mcg PO DAILY #90 tabs 12/11/24 methocarbamol 750 mg tablet 750 mg PO .every 12 hours #180 tabs 12/11/24 sotalol 120 mg tablet (Betapace) 120 mg PO QAM #90 tabs 12/11/24 sotalol 80 mg tablet 80 mg PO BEDTIME #90 tabs 12/11/24 topiramate 25 mg tablet (Topamax) 25 mg PO BID #60 tabs 12/11/24 valsartan 160 mg tablet (Diovan) 160 mg PO DAILY #90 tabs 12/11/24 prednisone 20 mg tablet 20 mg PO DAILY 7 days #15 tabs 12/25/24 ketorolac 10 mg tablet 10 mg PO Q8H PRN pain #15 tabs 12/27/24 methocarbamol 750 mg tablet 750 mg PO Q8H 5 days #15 tabs 12/27/24 Allergies Allergy/AdvReac Type Severity Reaction Status Date / Time No Known Allergies Allergy Verified 12/27/24 14:04 Review of Systems General: Reports: 10 or more systems reviewed and unremarkable except in HPI and below Const: Reports: other (denies trauma); Denies: fever(s), change in weight or night sweats Card: Denies: chest pain, lightheadedness or syncope Resp: Denies: dyspnea GI: Denies: abdominal pain or fecal incontinence : Reports: testicular pain (Right); Denies: urinary incontinence Musc: Reports: back pain and extremity pain (Right upper); Denies: neck pain Skin/Breast: Denies: rash or skin pain Neuro: Denies: headache(s), numbness in extremities, weakness in extremities, sensory changes, lack of coordination, difficulty walking, frequent falls or involuntary movements PFSH ED PFSH: Medical History Pneumonia Atrial fibrillation with RVR Hyperlipidemia, mixed Obesity, morbid, BMI 40.0-49.9 Sciatic neuropathy Right Gout Adult onset hypothyroidism Atrial fibrillation HTN (hypertension) Surgical History History of back surgery Lumbar S/P knee replacement left Family History Father Cancer Lung Lung disease Mother Cancer Colon Hypertension Denies family history of Diabetes CAD (coronary artery disease) Dementia Stroke Social History Smoking and tobacco/nicotine status: current every day tobacco/nicotine user cigarettes Packs smoked per day: 1 Years cigarettes smoked: 20 Second hand smoke exposure: No Alcohol intake: never Substance/Drug Use: never Adopted: No Caregiver/support person: No Lives independently: Yes Household members: spouse Housing: House Marital status: Number of children: 1 Highest education level completed: High School Graduate service: No Current occupational status: employed Current occupation: [employer] Pets and animals: Yes Do you think of yourself as: Straight/Heterosexual Current gender identity: Male Physical Exam Const: COMMON NORMALS: patient oriented x3, no limitations, healthy appearing and alert ORIENTATION/CONSCIOUSNESS: Yes awake OTHER: Appearing uncomfortable secondary to pain Resp: COMMON NORMALS: normal respiratory effort, No retractions, No use of accessory muscles and clear to auscultation bilaterally AUSCULTATION: clear to auscultation bilaterally Cardio: COMMON NORMALS: regular rate, regular rhythm, S1 normal heart sound present and S2 normal heart sound present RATE: regular rate RHYTHM: regular rhythm HEART SOUNDS: S1 normal heart sound present and S2 normal heart sound present GI: COMMON NORMALS: Soft to palpation and non-tender PALPATION: Yes Soft to palpation : COMMON NORMALS: Yes no CVA tenderness BLADDER/KIDNEY EXAM: Yes no CVA tenderness Back/Pelvis: COMMON NORMALS: no CVA tenderness OTHER: Straight leg raise positive on the right. Postoperative scar to lumbar spine. No spinous process tenderness or paracervical, parathoracic, or paralumbar tenderness to palpation. Pain with range of motion of the lower back. Extremity: COMMON NORMALS: normal to inspection and full ROM Neuro: COMMON NORMALS: patient oriented x3, moves all extremities, no focal motor deficits, no sensory deficits noted, deep tendon reflexes 2+ bilaterally and gait normal SENSORIUM/ORIENTATION: Yes alert OTHER: L3, L4, L5, and S1 nerve sensations intact. Normal knee jerk and ankle jerk reflexes. Skin: COMMON NORMALS: no rashes or lesions noted GENERAL SKIN EXAM: no rashes or lesions noted Course Vital Signs: Vital signs: Vital Signs Temperature 98 F 12/27/24 13:59 Pulse Rate 85 12/27/24 13:59 Respiratory Rate 18 12/27/24 13:59 Blood Pressure 182/116 12/27/24 15:05 Pulse Oximetry 98 12/27/24 15:05 Oxygen Delivery Me thod Room Air 12/27/24 15:05 MDM - Back Pain/Injury Medical Decision Making Patient has history of degenerative disc disease and sciatica, presenting with right lower back pain since Wednesday radiating down anterior right leg but also radiated into his groin. He had no urinary symptoms but I did obtain urinalysis to make sure that there was no signs of potential ureterolithiasis, no blood seen on UA and I do not suspect this. No red flag symptoms with history or on physical exam. Does have a history of kyphoplasty and is currently still seeing Dr. Rosario. He arrived stating his pain was severe but after Toradol, Decadron, and Norflex here in the ED notes it is a 4/10 and he is notably more comfortable. He states he is ready for discharge home, will prescribe him a short course of the Toradol and Robaxin as he is already on prednisone and have him continue follow-ups. Discussed return cautions, he verbalized understanding. Labs Laboratory Results Urine Color Yellow (Yellow) 12/27/24 15:45 Urine Appearance Clear (CLEAR) 12/27/24 15:45 Urine pH 6.5 (5-7) 12/27/24 15:45 Ur Specific [place] 1.024 (1.005-1.030) 12/27/24 15:45 Urine Protein Negative (Negative) 12/27/24 15:45 Urine Glucose (UA) Negative (Normal) 12/27/24 15:45 Urine Ketones Trace (Negative) 12/27/24 15:45 Urine Blood Negative (Negative) 12/27/24 15:45 Urine Nitrate Negative (Negative) 12/27/24 15:45 Urine Bilirubin Negative (Negative) 12/27/24 15:45 Urine Urobilinogen 1.0 mg/dL (Negative) 12/27/24 15:45 Ur Leukocyte Esterase Negative (Negative) 12/27/24 15:45 Urine RBC 0-2 /hpf (0-2) 12/27/24 15:45 Urine WBC 0-5 /hpf (0-5) 12/27/24 15:45 Ur Squamous Epith Cells 0-5 /hpf (0-5) 12/27/24 15:45 Amorphous Sediment Not Reportable 12/27/24 15:45 Urine Bacteria None seen /hpf (NONE) 12/27/24 15:45 Hyaline Casts 0-4 /lpf H 12/27/24 15:45 No radiology studies performed this visit Discharge Plan Discharge Patient Disposition: Home Clinical Impression: Lumbar radiculopathy Condition: Stable Prescriptions: New ketorolac 10 mg tablet 10 mg PO Q8H PRN (Reason: pain) Qty: 15 0RF methocarbamol 750 mg tablet 750 mg PO Q8H 5 Days Qty: 15 0RF No Action aspirin 325 mg tablet 325 mg PO DAILY Qty: 90 3RF bupropion HCl [Wellbutrin SR] 100 mg tablet sustained-release 12 hr 100 mg PO Q12H Qty: 60 2RF topiramate [Topamax] 25 mg tablet 25 mg PO BID Qty: 60 0RF diclofenac sodium 75 mg tablet,delayed release (DR/EC) 75 mg PO .in AM PRN (Reason: pain) Qty: 30 2RF doxepin 10 mg capsule 10 mg PO .at bedtime Qty: 90 0RF levothyroxine 50 mcg tablet 50 mcg PO DAILY Qty: 90 0RF methocarbamol 750 mg tablet 750 mg PO .every 12 hours Qty: 180 0RF Rx Instructions: as needed for muscle pain sotalol 80 mg tablet 80 mg PO BEDTIME Qty: 90 0RF sotalol [Betapace] 120 mg tablet 120 mg PO QAM Qty: 90 0RF valsartan [Diovan] 160 mg tablet 160 mg PO DAILY Qty: 90 0RF (DME) pen needle, diabetic 33 gauge x 5/32 needle See Rx Instructions .ROUTE .MEDSUPPLY Qty: 100 5RF Rx Instructions: 1 time day prednisone 20 mg tablet 20 mg PO DAILY 7 Days Qty: 15 0RF Rx Instructions: 60mg daily for 3 days 40mg daily for2 days 20mg daily for 2days Discharge Orders: Discharge ED (Routine); Ordered 12/27/24 Ordered By: Kavon Cummins Referrals: Nicolas Pink, SENIOR MARKETING DATA ANALYST-C [Primary Care Provider] - Patient Instructions: Lumbar Radiculopathy (ED) Activity Restrictions/Additional Instructions: Continue taking the prednisone as prescribed, and take methocarbamol and Toradol. Heat to the back, range of motion exercises as tolerated. Work note is provided, please keep following up with Ortho/spine as planned. Return with any loss of bowel or bladder function, numbness in the groin region, paralysis in your legs, or any other concerns that you have. Please see the attached patient instructions for further education. Stand Alone Forms: Work/School Release Print Language: Belgian Coding Level of Care Code ED Quotation Clerk for Ambreen Cristina
[2024-12-27 16:21] LABS: Bilirubin Urine Negative (Negative); Blood Urine Negative (Negative); Glucose Urine UA Negative (Normal); Ketones Urine Trace (Negative); Leukocyte Esterase Urine Negative (Negative); Nitrate Urine Negative (Negative); Protein Urine Negative (Negative); Specific Gravity, Urine 1.024 (1.005-1.030); Urine Appearance Clear (CLEAR); Urine Color Yellow (Yellow); pH Urine 6.5 (5-7)
[2024-12-27 16:26] LABS: Add Urine Microscopic? YES; Bacteria Urine None Seen /hpf; Hyaline Casts Urine 0-4 /lpf; RBC Urine 0-2 /hpf (0-2); Squamous Epithelial Cell Urine 0-5 /hpf (0-5); WBC Urine 0-5 /hpf (0-5)
[2024-12-27 16:55] VITALS: BP 157/92; PULSE 78; O2SAT 98
== END 2024-12-27 16:56 | disposition home or self-care (01) ==
PROVIDERS: Emergency Provider Physician Assistant; PCP Nurse Practitioner
DX: M54.16 Radiculopathy, lumbar region (principal); Z79.82 Long term (current) use of aspirin; F17.210 Nicotine dependence, cigarettes, uncomplicated; I10 Essential (primary) hypertension; E78.2 Mixed hyperlipidemia
CPT/HCPCS: 81001; 96372; 99284; J1100; J1885; J2360

== ENCOUNTER → 2025-03-05 15:37 | Outpatient (BNVA) | payer OTHER, SELFPAY | PROVIDERS: PCP Nurse Practitioner; Visit Provider Nurse Practitioner | DX: I10 Essential (primary) hypertension (principal); E78.2 Mixed hyperlipidemia; E03.8 Other specified hypothyroidism; E55.9 Vitamin D deficiency, unspecified; Z12.5 Encounter for screening for malignant neoplasm of prostate | CPT/HCPCS: 80053; 80061; 81000; 82306; 82607; 83721; 84443; 85025; G0103 ==

== ENCOUNTER → 2025-09-03 16:28 | Outpatient (BNVA) | payer OTHER, SELFPAY | PROVIDERS: PCP Nurse Practitioner; Visit Provider Nurse Practitioner | DX: E78.2 Mixed hyperlipidemia (principal); I10 Essential (primary) hypertension; E03.8 Other specified hypothyroidism; E55.9 Vitamin D deficiency, unspecified | CPT/HCPCS: 80053; 80061; 82306; 84443 ==

== ENCOUNTER → 2025-10-08 10:26 | Outpatient (BNVA) | payer OTHER, SELFPAY | PROVIDERS: PCP Nurse Practitioner; Visit Provider Clinical Nurse Specialist Adult Health | DX: R50.9 Fever, unspecified (principal) | CPT/HCPCS: 87400 ==

== ENCOUNTER 2025-10-09 05:44 | Observation (INO) | payer OTHER, SELFPAY ==
[2025-10-09] VITALS (16 sets, daily range): BP systolic 101–127; BP diastolic 55–86; PULSE 61–147; RESP 17–20; TEMP 36.5–37; O2SAT 93–98; BMI 45.0
--- NOTE | 2025-10-09 05:53 | ECG_ITS ---
[facility] Date: 2025-[facility]09 Pat Name: Kerrie Davis Department: Room: Gender: Male Senior Environmental Consultant: : 1975 Requested By: Ruthie Sanchez Order Number: [id number] Donald MD: JOAO FREITAS Measurements Intervals [place] Rate: 138 P: 0 [place]: 0 QRS: 39 QRSD: 89 T: 41 QT: 302 QTc: 458 Interpretive Statements ATRIAL FIBRILLATION WITH RAPID VENTRICULAR RESPONSE ABNORMAL RHYTHM ECG Compared to ECG 10/05/2024 18:41:44 Sinus rhythm no longer present Electronically Signed On 10-09-2025 11:53:27 MULTIMEDIA PROJECT MANAGER by JOAO FREITAS [id number]
--- NOTE | 2025-10-09 05:53 | XR_ITS ---
WS: [id number] Portable AP upright chest, 10/09/2025 Clinical Data: Weakness Comparison: Portable chest, 06/30/2024 Findings: No nodules, masses or effusions are seen. The heart is slightly enlarged. The pulmonary vascularity is not increased. No pneumonia or pneumothorax is seen. Monitor leads are on the chest wall. XR/XR chest 1V portable [id number] Impression: Cardiomegaly.
--- NOTE | 2025-10-09 05:56 | W.ED.SOB ---
HPI - SOB/Dyspnea General: Chief Complaint: Shortness of Breath/Dyspnea Stated Complaint: Flu+ (SOB) Time Seen by Provider: 10/09/25 05:51 History of Present Illness: HPI Narrative: 49-year-old male with a history of atrial fibrillation, obesity, gout, hypertension, hypothyroidism and hyperlipidemia who presents to the emergency room with shortness of breath. Recent flu diagnosis. Says he said difficulty breathing. He has been sick for about 3 days now. Initially heart rate is in the 60s but after going back to his bed and sitting down when I come to evaluate him he is tachycardic in the 140s. Related Data Previous Rx's ?Medication ?Instructions ?Recorded pen needle, diabetic 33 gauge x #100 ea 04/08/23 aspirin 325 mg tablet 325 mg PO DAILY #90 tabs 07/04/24 diclofenac sodium 75 mg 75 mg PO .in AM PRN pain #30 tabs 06/06/25 tablet,delayed release atorvastatin 80 mg tablet 80 mg PO QDAY #90 tabs 09/03/25 cholecalciferol (vitamin D3) 50 50 mcg PO DAILY #30 caps 09/03/25 mcg (2,000 unit) capsule doxepin 10 mg capsule 10 mg PO .at bedtime #90 caps 09/03/25 duloxetine 20 mg capsule,delayed 20 mg PO BID #180 caps 09/03/25 release levothyroxine 50 mcg tablet 50 mcg PO DAILY #90 tabs 09/03/25 methocarbamol 750 mg tablet 750 mg PO .every 12 hours #180 tabs 09/03/25 sotalol 120 mg tablet (Betapace) 120 mg PO QAM #90 tabs 09/03/25 sotalol 80 mg tablet 80 mg PO BEDTIME #90 tabs 09/03/25 valsartan 160 mg tablet (Diovan) 160 mg PO DAILY #90 tabs 09/03/25 albuterol sulfate 90 mcg/actuation 2 inh inhalation QID PRN shortness 10/08/25 aerosol inhaler of breath or wheezing #8.5 grams oseltamivir 75 mg capsule (Tamiflu) 75 mg PO BID 5 days #10 caps 10/08/25 Allergies Allergy/AdvReac Type Severity Reaction Status Date / Time No Known Allergies Allergy Verified 10/09/25 05:55 Review of Systems Narrative: Constitutional symptoms: Negative except as documented in HPI. Skin symptoms: Negative except as documented in HPI. Eye symptoms: Negative except as documented in HPI. ENMT symptoms: Negative except as documented in HPI. Respiratory symptoms: Negative except as documented in HPI. Cardiovascular symptoms: Negative except as documented in HPI. Gastrointestinal symptoms: Negative except as documented in HPI. Genitourinary symptoms: Negative except as documented in HPI. Musculoskeletal symptoms: Negative except as documented in HPI. Neurologic symptoms: Negative except as documented in HPI. Psychiatric symptoms: Negative except as documented in HPI. Endocrine symptoms: Negative except as documented in HPI. PFSH ED PFSH: Medical History (Updated 10/09/25 @ 09:03 by Ruthie Gonzalez MD) Pneumonia Atrial fibrillation with RVR Hyperlipidemia, mixed Obesity, morbid, BMI 40.0-49.9 Sciatic neuropathy Right Gout Adult onset hypothyroidism Atrial fibrillation HTN (hypertension) Surgical History History of back surgery Lumbar S/P knee replacement left Family History Father Cancer Lung Lung disease Mother Cancer Colon Hypertension Denies family history of Diabetes CAD (coronary artery disease) Dementia Stroke Social History Smoking and tobacco/nicotine status: current every day tobacco/nicotine user cigarettes Packs smoked per day: 1 Years cigarettes smoked: 20 Second hand smoke exposure: No Alcohol intake: never Substance/Drug Use: never Adopted: No Caregiver/support person: No Lives independently: Yes Household members: spouse Housing: House Marital status: Number of children: 1 Highest education level completed: High School Graduate service: No Current occupational status: employed Current occupation: [employer] Pets and animals: Yes Do you think of yourself as: Straight/Heterosexual Current gender identity: Male Physical Exam Narrative: EXAM NARRATIVE: General: Alert, no acute distress. Skin: Warm, dry. Head: Normocephalic, atraumatic. Neck: Supple, trachea midline. Eye: Extraocular movements are intact. Ears, nose, mouth and throat: mucosa moist. Cardiovascular: Irregular, tachycardic, Normal peripheral perfusion. Respiratory: Lungs are clear to auscultation, respirations are non-labored, breath sounds are equal, Symmetrical chest wall expansion. Gastrointestinal: Soft, Nontender, Non distended Musculoskeletal: Normal ROM, no deformity. Neurological: Alert and oriented, No focal neurological deficit observed. Psychiatric: Cooperative, appropriate mood & affect. Course Vital Signs: Vital signs: Vital Signs Temperature 97.7 F 10/09/25 05:49 Pulse Rate 94 10/09/25 08:24 Respiratory Rate 20 H 10/09/25 05:49 Blood Pressure 114/82 10/09/25 07:36 Pulse Oximetry 96 10/09/25 08:24 Oxygen Delivery Me thod Room Air 10/09/25 08:24 MDM - SOB/Dyspnea Medical Decision Making Medical decision making Patient's reason for coming to the emergency room: Flu positive. Shortness of breath. 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 Accompanied by his . I reviewed the patient's medical record. 49-year-old male with a history of atrial fibrillation, obesity, gout, hypertension, hypothyroidism and hyperlipidemia I reviewed the patient's current home meds Patient takes sotalol. He is not anticoagulated Alternate historians: None Differential diagnosis for patient with shortness of breath includes but is not limited to and based on the above HPI, review of systems and physical exam: Pneumonia. Bronchitis. Asthma or COPD with acute exacerbation. Acute coronary syndrome / ND. Pulmonary embolism. Anxiety. Congestive heart failure. Viral infections including influenza and Covid-19. Atrial fibrillation. Anxiety. Pleural effusion. Pneumothorax. Orders placed to evaluate differential diagnosis based on the above differential, HPI and physical exam EKG: Time 5:54 AM. Rate 138. Atrial fibrillation with rapid ventricular response, No ST-T changes, no ectopy, This was reviewed and interpreted by myself the ER physician at 5:59 AM Chest x-ray: I do not see any obvious acute process: Cardiomegaly. Films were interpreted by myself the emergency room provider and pending final radiology review. Lab Review: Laboratory results were reviewed and interpreted by myself the emergency room physician. No leukocytosis. No anemia. No renal failure. Urinalysis is negative for infection. I reviewed the chart and his flu was positive here yesterday. Serial cardiac markers are negative. Assessment of risk: Level of risk: Moderate risk patient. Multiple comorbidities combined with influenza. Hospitalization considerations: Patient is being admitted to observation. Reexamination: Heart rate has improved some. He had an episode where he went back into sinus briefly. Then was in the 100s. Most recently has come back up some and is now 120-130. No altered mental status. No oxygen requirements. Consultation: I spoke with Dr. Garza who is on-call for the hospitalist service who agrees to admission to observation to the stepdown floor Assessment and plan: Influenza A Atrial fibrillation with rapid ventricular response Dehydration ?Saline bolus, Solu-Medrol, ?Amiodarone bolus and drip -I discussed the patient with the hospitalist on-call who is admitting the patient. - Discussed findings and plan with patient. Answered any questions. - All laboratory values were reviewed and interpreted personally by myself, the ER physician - All imaging was reviewed and interpreted personally by myself, the ER physician. - Evaluation and treatment of this problem were appropriate in the emergency setting Lab Data 10/09/25 06:00 10/09/25 06:00 Labs/Radiology: Radiology Impressions Chest X-Ray 10/09/25 05:53 Impression: Cardiomegaly. Laboratory Results WBC 7.59 10^3/uL (3.29-11.43) 10/09/25 06:00 RBC 5.41 10^6/uL (3.85-5.65) 10/09/25 06:00 Hgb 16.80 g/dL (11.27-16.99) 10/09/25 06:00 Hct 48.9 % (37-53) 10/09/25 06:00 MCV 90.4 fl (82-101) 10/09/25 06:00 MCH 31.1 pg (27-33) 10/09/25 06:00 MCHC 34.4 g/dL (30-55) 10/09/25 06:00 RDW 12.6 % (12.1-15.1) 10/09/25 06:00 Plt Count 227 10^3/cmm (157-399) 10/09/25 06:00 MPV 9.8 fL (7.4-10.4) 10/09/25 06:00 Neut % (Auto) 66.0 % 10/09/25 06:00 Lymph % (Auto) 23.1 % 10/09/25 06:00 [place] % (Auto) 8.8 % 10/09/25 06:00 Eos % (Auto) 1.2 % 10/09/25 06:00 Baso % (Auto) 0.5 % 10/09/25 06:00 Neut # (Auto) 5.01 10^3/uL (1.8-7.7) 10/09/25 06:00 Lymph # (Auto) 1.8 10^3/uL (0.8-4.8) 10/09/25 06:00 Pine # (Auto) 0.7 10^3/uL (0.2-0.9) 10/09/25 06:00 Eos # (Auto) 0.1 10^3/uL (0.0-0.8) 10/09/25 06:00 Baso # (Auto) 0.0 10^3/uL (0.0-0.1) 10/09/25 06:00 Nucleated RBC % (auto) 0 % 10/09/25 06:00 Nucleated RBCs # 0.0 /100WBC 10/09/25 06:00 Sodium 138 mmol/L (136-145) 10/09/25 06:00 Potassium 3.9 mmol/L (3.5-5.1) 10/09/25 06:00 Chloride 101 mmol/L (98-107) 10/09/25 06:00 Carbon Dioxide 27 mmol/L (22-29) 10/09/25 06:00 Anion Gap 13.9 (5-19) 10/09/25 06:00 BUN 7 mg/dL (6-20) 10/09/25 06:00 Creatinine 0.8 mg/dL (0.7-1.2) 10/09/25 06:00 GFR Calculation 102.3 mL/min (90-130) 10/09/25 06:00 Glucose 133 mg/dL (65-115) H 10/09/25 06:00 Calculated Osmolality 286 mOsm/kg (285-295) 10/09/25 06:00 Lactic Acid 1.5 mmol/L (0.5-2.2) 10/09/25 06:00 Calcium 8.8 mg/dL (8.5-10.5) 10/09/25 06:00 Total Bilirubin 0.4 mg/dL (0.15-1.2) 10/09/25 06:00 AST 52 U/L (0-40) H 10/09/25 06:00 ALT 35 U/L (0-41) 10/09/25 06:00 Alkaline Phosphatase 116 U/L (40-130) 10/09/25 06:00 Troponin T Baseline 15 ng/L (0-15) 10/09/25 06:00 Troponin T 60 Minute 16.00 ng/L (0-15) H 10/09/25 07:00 Delta Troponin T 1.00 ABS# (0-10) 10/09/25 07:00 Total Protein 7.3 g/dL (6.6-8.7) 10/09/25 06:00 Albumin 4.0 g/dL (3.5-5.2) 10/09/25 06:00 Globulin 3.3 g/dL (1.3-4.6) 10/09/25 06:00 Urine Color Yellow (Yellow) 10/09/25 07:15 Urine Appearance Clear (CLEAR) 10/09/25 07:15 Urine pH 6.5 (5-7) 10/09/25 07:15 Ur Specific [place] 1.015 (1.005-1.030) 10/09/25 07:15 Urine Protein 2+ (Negative) A 10/09/25 07:15 Urine Glucose (UA) Negative (Normal) 10/09/25 07:15 Urine Ketones Negative (Negative) 10/09/25 07:15 Urine Blood Negative (Negative) 10/09/25 07:15 Urine Nitrate Negative (Negative) 10/09/25 07:15 Urine Bilirubin Negative (Negative) 10/09/25 07:15 Urine Urobilinogen 0.2 mg/dL (Negative) 10/09/25 07:15 Ur Leukocyte Esterase Negative (Negative) 10/09/25 07:15 Urine RBC 3-5 /hpf (0-2) 10/09/25 07:15 Urine WBC 0-5 /hpf (0-5) 10/09/25 07:15 Ur Squamous Epith Cells 0-5 /hpf (0-5) 10/09/25 07:15 Amorphous Sediment Not Reportable 10/09/25 07:15 Urine Bacteria None seen /hpf (NONE) 10/09/25 07:15 Hyaline Casts 7.01 /lpf 10/09/25 07:15 All radiology interpretation(s) finalized by discharge Discharge Plan Discharge Patient Disposition: Placed in Observation Clinical Impression: Atrial fibrillation with rapid ventricular response, Influenza A Coding Level of Care Code ED Marketing Finance Specialist for Ambreen Cristina
[2025-10-09 06:05] LABS: Hematocrit 48.9 % (37-53); Hemoglobin 16.80 g/dL (11.27-16.99); Mean Corpuscular HGB Conc 34.4 g/dL (30-55); Mean Corpuscular Hemoglobin 31.1 pg (27-33); Mean Corpuscular Volume 90.4 fl (82-101); Nucleated Red Blood Cells % 0 %; Platelet Count 227 10^3/cmm (157-399); Red Blood Count 5.41 10^6/uL (3.85-5.65); White Blood Count 7.59 10^3/uL (3.29-11.43)
[2025-10-09 06:24] LABS: Troponin(5th) Baseline 15 ng/L (0-15)
[2025-10-09 06:28] LABS: Lactic Sepsis W/Reflex 1.5 mmol/L (0.5-2.2)
[2025-10-09 06:29] LABS: Alanine Aminotransferase 35 U/L (0-41); Albumin Level 4.0 g/dL (3.5-5.2); Alkaline Phosphatase 116 U/L (40-130); Anion Gap 13.9 (5-19); Aspartate Amino Transferase 52 U/L (0-40); Blood Urea Nitrogen 7 mg/dL (6-20); Calcium 8.8 mg/dL (8.5-10.5); Carbon Dioxide 27 mmol/L (22-29); Chloride 101 mmol/L (98-107); Globulin 3.3 g/dL (1.3-4.6); Glucose 133 mg/dL (65-115); Osmolality Calculated 286 mOsm/kg (285-295); Potassium 3.9 mmol/L (3.5-5.1); Sodium 138 mmol/L (136-145); Total Protein 7.3 g/dL (6.6-8.7)
[2025-10-09] MEDS: amiodarone 150 MG/100 ML PREMIX 400 MG IV (06:42)
[2025-10-09] MEDS: methylPREDNISolone sod succ 125 mg/2 mL INJ IVP (06:42)
[2025-10-09] MEDS: AMIODARONE HCL/D5W 900 MG/500 ML BAG 33.33 MG IV ×2 (07:16→10:07)
[2025-10-09 07:35] LABS: Glucose Urine UA Negative (Normal); Nitrate Urine Negative (Negative); Specific Gravity, Urine 1.015 (1.005-1.030)
[2025-10-09 07:51] LABS: UA Slide Review UA Slide Review Perf
--- NOTE | 2025-10-09 08:02 | ECG_ITS ---
[facility] Test Date: 2025-10-09 Pat Name: Kerrie Davis Department: Room: Gender: Male Program Administrator: : 1975 Requested By: uRthie Sanchez Order Number: [id number] Bennett MD: JOAO FREITAS Measurements Intervals [place] Rate: 109 P: 0 IA: 0 QRS: 44 QRSD: 89 T: 59 QT: 367 QTc: 496 Interpretive Statements ATRIAL FIBRILLATION WITH RAPID VENTRICULAR RESPONSE ABNORMAL RHYTHM ECG Compared to ECG 10/09/2025 05:54:48 No significant changes Electronically Signed On 10-10-2025 20:39:11 PHARMACIST ASSISTANT by JOAO FREITAS [id number]
--- NOTE | 2025-10-09 08:31 | PM.HP ---
Providers/Chief Complaint Admitting Physician: Nba Garza MD Primary Care Provider: Nicolas Pink, MARY-C Chief Complaint: Flu+ (SOB) History of Present Illness Kerrie Davis is a 49 year old male with a history significant for atrial fibrillation(not on anticoagulation), hypertension, and hypothyroidism, who presents with complaints of shortness of breath. He began to feel ill on 10/06 with complaints of cough and shortness of breath which improved the day prior to presentation. Nevertheless, on that day, he was able to obtain a influenza test with returned positive for influenza A. He was prescribed Tamiflu but this was not picked up yet. On the morning of presentation, he woke up very short of breath so hhe decided to come to the ED for further evaluation. On further questioning, he endorses recent fevers, chills, rib pain from coughing which was initially dry but has now begun to expectorate sputum. The morning of presentation, he says he felt like his heart was in his head when asking about palpitations. Medications/Allergies Home Medications ?Medication ?Instructions ?Recorded ?Confirmed ?Last Taken ?Type pen needle, diabetic 33 gauge x #100 ea 04/08/23 10/08/25 Unknown Rx aspirin 325 mg tablet 325 mg PO DAILY #90 tabs 07/04/24 10/08/25 Unknown Rx diclofenac sodium 75 mg 75 mg PO .in AM PRN pain #30 tabs 06/06/25 10/08/25 Unknown Rx tablet,delayed release atorvastatin 80 mg tablet 80 mg PO QDAY #90 tabs 09/03/25 10/08/25 Unknown Rx cholecalciferol (vitamin D3) 50 50 mcg PO DAILY #30 caps 09/03/25 10/08/25 Unknown Rx mcg (2,000 unit) capsule doxepin 10 mg capsule 10 mg PO .at bedtime #90 caps 09/03/25 10/08/25 Unknown Rx duloxetine 20 mg capsule,delayed 20 mg PO BID #180 caps 09/03/25 10/08/25 Unknown Rx release levothyroxine 50 mcg tablet 50 mcg PO DAILY #90 tabs 09/03/25 10/08/25 Unknown Rx methocarbamol 750 mg tablet 750 mg PO .every 12 hours #180 tabs 09/03/25 10/08/25 Unknown Rx sotalol 120 mg tablet (Betapace) 120 mg PO QAM #90 tabs 09/03/25 10/08/25 Unknown Rx sotalol 80 mg tablet 80 mg PO BEDTIME #90 tabs 09/03/25 10/08/25 Unknown Rx valsartan 160 mg tablet (Diovan) 160 mg PO DAILY #90 tabs 09/03/25 10/08/25 Unknown Rx albuterol sulfate 90 mcg/actuation 2 inh inhalation QID PRN shortness 10/08/25 10/08/25 Unknown Rx aerosol inhaler of breath or wheezing #8.5 grams oseltamivir 75 mg capsule (Tamiflu) 75 mg PO BID 5 days #10 caps 10/08/25 10/08/25 Unknown Rx Allergies Allergy/AdvReac Type Severity Reaction Status Date / Time No Known Allergies Allergy Verified 10/09/25 05:55 PFSH Acute PFSH: Medical History (Updated 10/09/25 @ 08:49 by Nba Garza MD) Pneumonia Atrial fibrillation with RVR Hyperlipidemia, mixed Obesity, morbid, BMI 40.0-49.9 Sciatic neuropathy Right Gout Adult onset hypothyroidism Atrial fibrillation HTN (hypertension) Surgical History History of back surgery Lumbar S/P knee replacement left Family History Father Cancer Lung Lung disease Mother Cancer Colon Hypertension Denies family history of Diabetes CAD (coronary artery disease) Dementia Stroke Social History Smoking and tobacco/nicotine status: current every day tobacco/nicotine user cigarettes Packs smoked per day: 1 Years cigarettes smoked: 20 Second hand smoke exposure: No Alcohol intake: never Substance/Drug Use: never Adopted: No Caregiver/support person: No Lives independently: Yes Household members: spouse Housing: House Marital status: Number of children: 1 Highest education level completed: High School Graduate service: No Current occupational status: employed Current occupation: [employer] Pets and animals: Yes Do you think of yourself as: Straight/Heterosexual Current gender identity: Male Vitals/I&O/Wt Last Vital Signs Temp 97.7 F 10/09/25 05:49 Pulse 94 10/09/25 08:24 Resp 20 H 10/09/25 05:49 BP 114/82 10/09/25 07:36 Pulse Ox 96 10/09/25 08:24 O2 Del Method Room Air 10/09/25 08:24 Weight last 48 hrs Weight 138.346 kg Physical Exam Const: COMMON NORMALS: no acute distress, patient oriented x3, healthy appearing and well nourished Resp: COMMON NORMALS: normal respiratory effort, No retractions, No use of accessory muscles and clear to auscultation bilaterally Cardio: OTHER: irregularly irregular rhythm. No MRG. GI: INSPECTION: Yes normal to inspection Neuro: COMMON NORMALS: patient oriented x3 and CN's II-XII intact bilaterally Data 10/09/25 06:00 10/09/25 06:00 Micro: Microbiology 10/09/25 06:02 Blood Culture - Preliminary Blood SPECIMEN COLLECTED 10/09/25 06:00 Blood Culture - Preliminary Blood SPECIMEN COLLECTED A&P Assessment and plan 1. Atrial fibrillation, unspecified type: - Seen to have atrial fibrillation with RVR. Likely due to his acute illness with influenza A - Patient started on Amiodarone with improved rates. Diltiazem held due to borderline low BP per ED physician - DC Amiodarone. Increased risk for prolonged QTc with this and sotalol. If he returns to a rapid ventricular rate, can reconsider diltiazem or digoxin to help with rates - [id number] score of 1. Holding therapeutic anticoagulation 2. Influenza A: - Droplet precautions - Start Tamiflu 75mg PO BID 3. HTN (hypertension): - Hold home valsartan for now 4. Hyperlipidemia, mixed: - Continue statin 5. Obesity, morbid, BMI 40.0-49.9: PDMP PDMP Reviewed: Not Reviewed Attestations Medical Necessity Statement*: Patient will require less than two midnight for inpatient management of his atrial fibrillation with RVR Coding Level of Care Code Acute Code for [facility] Fwd Diagnoses Atrial fibrillation, unspecified type I48.91 Atrial fibrillation type: unspecified Influenza A J10.1 HTN (hypertension) I10 Hyperlipidemia, mixed E78.2 Obesity, morbid, BMI 40.0-49.9 E66.01
[2025-10-09 12:16] LABS: Troponin 5 6HR 11.29 ng/L (0-15)
[2025-10-09 12:20] LABS: Troponin 5 6HR Delta -3.71 ng/L (0-12)
--- NOTE | 2025-10-09 15:08 | PC.NURSE ---
Nurse went into room to round on patient after being in another patient's room for 20 min, and noticed patient has gone back into sinus rhythm with a heart rate in the 60s. Dr Larson notified via Voalte.
[2025-10-10] VITALS (7 sets, daily range): BP systolic 121–175; BP diastolic 79–108; PULSE 56–60; RESP 16–18; TEMP 36.5–36.7; O2SAT 94–98
--- NOTE | 2025-10-10 09:16 | PC.NURSE ---
patient is requesting a breathing treatment. Dispatcher Clerk doesn't see any orders but respiratory therapy notified.
--- NOTE | 2025-10-10 09:40 | PC.NURSE ---
Resp at bedside for requested breathing treatment. Pt tolerating well. POC ongoing
--- NOTE | 2025-10-10 09:46 | PC.CHAP ---
Pastoral Care Encounter/Spiritual Assessment Type of Contact [] Declined retort kiln burner visit [] Patient/Family/Request visit [] Outpatient visit [] Follow-up visit [] Physician referral [] Code/Alert [] Routine visit [] Staff referral [] Actively dying [] Patient sleeping [] Family support [] [] Out of room [] Palliative care [] [] Receiving care in room [] Pre-surgical visit [] Trauma [] Long length of stay [] ICU visit [x] Other:Contact precautions. No visit. Relational/Emotional Strength [] Patient feels connected with others/family/visitors/staff [] Distress [] Loneliness/isolation [] Abandonment Spirituality of Patient [] Person of Nury [] Attends Presybeterian of their [place] [] Believes in Prayer [] Reads Bible or Mandaen materials [] There are Spiritual issues to be addressed Washery Engineer Interventions [] Prayer [] Active listening [] Non-anxious presence [] Spiritual/emotional support [] Crisis/trauma care [] Spiritual counseling [] Bereavement support [] Provided bereavement packet [] Provided Bible/devotional materials [] Provided toy/stuffed animal, coloring book to patient or family member [] Provided Communion [] Anointing/[place] [] Salvation [] Completed spiritual assessment [] Other: Impact on Illness or Injury [] Angry [] Fearful [] Anxious [] Often cries [] Exhaustion [] Unable to work [] Unable to attend hindu [] Unable to walk/stand [] Unable to read [] Unable to drive [] Unable to eat/drink [] Unable to sleep [] Unable to be with family [] Patient intubated [] Other: Summary Time spent with patient
--- NOTE | 2025-10-10 11:45 | PM.DCS ---
Discharge Providers Date of Admission: 10/09/25 09:19 Date of Discharge: October 10, 2025 Attending Provider at Admission: Nba Garza MD Attending Provider at Discharge: Brennan Larson MD Primary Care Provider: ARLET Palomino Diagnoses at Discharge Discharge Diagnosis 1. Atrial fibrillation, unspecified type: 2. Influenza A: 3. Essential hypertension: 4. Hyperlipidemia, mixed: 5. Obesity, morbid, BMI 40.0-49.9: Reason for Visit Reason for Visit: Flu+ (SOB) Brief History: Kerrie Davis is a 49 year old male with a history significant for atrial fibrillation(not on anticoagulation), hypertension, and hypothyroidism, who presents with complaints of shortness of breath. He began to feel ill on 10/06 with complaints of cough and shortness of breath which improved the day prior to presentation. Nevertheless, on that day, he was able to obtain a influenza test with returned positive for influenza A. He was prescribed Tamiflu but this was not picked up yet. On the morning of presentation, he woke up very short of breath so hhe decided to come to the ED for further evaluation. On further questioning, he endorses recent fevers, chills, rib pain from coughing which was initially dry but has now begun to expectorate sputum. The morning of presentation, he says he felt like his heart was in his head when asking about palpitations. Hospital Course Hospital Course Patient was treated with supportive therapy and tamsulosin for underlying influenza A. Apparently the underlying illness had set up his A-fib, which he says has happened before. He states that his atrial fibrillation is normally well-controlled with metoprolol tartrate twice daily, with good follow-up. I recommend against using albuterol for now, as it can increase your heart rate and set off the atrial fibrillation. I prescribed for him 5 days of prednisone. Patient was discharged in stable condition. Physical Exam Const: COMMON NORMALS: no acute distress, patient oriented x3, healthy appearing and well nourished Resp: COMMON NORMALS: normal respiratory effort, No retractions, No use of accessory muscles and clear to auscultation bilaterally AUSCULTATION: clear to auscultation bilaterally Cardio: OTHER: irregularly irregular rhythm. No MRG. GI: INSPECTION: Yes normal to inspection Neuro: COMMON NORMALS: patient oriented x3 and CN's II-XII intact bilaterally Discharge Data Studies Completed and Pending Completed Studies During Hospitalization Category Date Time Status XR chest 1V portable [id number] Stat Exams 10/09/25 05:53 Completed Pending at discharge Category Date Time Status Blood Culture Stat Lab 10/09/25 06:02 Results Radiology Impressions Chest X-Ray 10/09/25 05:53 Impression: Cardiomegaly. Laboratory Results WBC 7.59 10^3/uL (3.29-11.43) 10/09/25 06:00 RBC 5.41 10^6/uL (3.85-5.65) 10/09/25 06:00 Hgb 16.80 g/dL (11.27-16.99) 10/09/25 06:00 Hct 48.9 % (37-53) 10/09/25 06:00 MCV 90.4 fl (82-101) 10/09/25 06:00 MCH 31.1 pg (27-33) 10/09/25 06:00 MCHC 34.4 g/dL (30-55) 10/09/25 06:00 RDW 12.6 % (12.1-15.1) 10/09/25 06:00 Plt Count 227 10^3/cmm (157-399) 10/09/25 06:00 MPV 9.8 fL (7.4-10.4) 10/09/25 06:00 Neut % (Auto) 66.0 % 10/09/25 06:00 Lymph % (Auto) 23.1 % 10/09/25 06:00 [place] % (Auto) 8.8 % 10/09/25 06:00 Eos % (Auto) 1.2 % 10/09/25 06:00 Baso % (Auto) 0.5 % 10/09/25 06:00 Neut # (Auto) 5.01 10^3/uL (1.8-7.7) 10/09/25 06:00 Lymph # (Auto) 1.8 10^3/uL (0.8-4.8) 10/09/25 06:00 [place] # (Auto) 0.7 10^3/uL (0.2-0.9) 10/09/25 06:00 Eos # (Auto) 0.1 10^3/uL (0.0-0.8) 10/09/25 06:00 Baso # (Auto) 0.0 10^3/uL (0.0-0.1) 10/09/25 06:00 Nucleated RBC % (auto) 0 % 10/09/25 06:00 Nucleated RBCs # 0.0 /100WBC 10/09/25 06:00 Sodium 138 mmol/L (136-145) 10/09/25 06:00 Potassium 3.9 mmol/L (3.5-5.1) 10/09/25 06:00 Chloride 101 mmol/L (98-107) 10/09/25 06:00 Carbon Dioxide 27 mmol/L (22-29) 10/09/25 06:00 Anion Gap 13.9 (5-19) 10/09/25 06:00 BUN 7 mg/dL (6-20) 10/09/25 06:00 Creatinine 0.8 mg/dL (0.7-1.2) 10/09/25 06:00 GFR Calculation 102.3 mL/min (90-130) 10/09/25 06:00 Glucose 133 mg/dL (65-115) H 10/09/25 06:00 Calculated Osmolality 286 mOsm/kg (285-295) 10/09/25 06:00 Lactic Acid 1.5 mmol/L (0.5-2.2) 10/09/25 06:00 Calcium 8.8 mg/dL (8.5-10.5) 10/09/25 06:00 Total Bilirubin 0.4 mg/dL (0.15-1.2) 10/09/25 06:00 AST 52 U/L (0-40) H 10/09/25 06:00 ALT 35 U/L (0-41) 10/09/25 06:00 Alkaline Phosphatase 116 U/L (40-130) 10/09/25 06:00 Troponin T Baseline 15 ng/L (0-15) 10/09/25 06:00 Troponin T 60 Minute 16.00 ng/L (0-15) H 10/09/25 07:00 Delta Troponin T 1.00 ABS# (0-10) 10/09/25 07:00 Troponin T Hi Sens 6Hr 11.29 ng/L (0-15) 10/09/25 11:20 Troponin T Hi Sens 6Hr Delta -3.71 ng/L (0-12) L 10/09/25 11:20 Total Protein 7.3 g/dL (6.6-8.7) 10/09/25 06:00 Albumin 4.0 g/dL (3.5-5.2) 10/09/25 06:00 Globulin 3.3 g/dL (1.3-4.6) 10/09/25 06:00 Urine Color Yellow (Yellow) 10/09/25 07:15 Urine Appearance Clear (CLEAR) 10/09/25 07:15 Urine pH 6.5 (5-7) 10/09/25 07:15 Ur Specific [place] 1.015 (1.005-1.030) 10/09/25 07:15 Urine Protein 2+ (Negative) A 10/09/25 07:15 Urine Glucose (UA) Negative (Normal) 10/09/25 07:15 Urine Ketones Negative (Negative) 10/09/25 07:15 Urine Blood Negative (Negative) 10/09/25 07:15 Urine Nitrate Negative (Negative) 10/09/25 07:15 Urine Bilirubin Negative (Negative) 10/09/25 07:15 Urine Urobilinogen 0.2 mg/dL (Negative) 10/09/25 07:15 Ur Leukocyte Esterase Negative (Negative) 10/09/25 07:15 Urine RBC 3-5 /hpf (0-2) 10/09/25 07:15 Urine WBC 0-5 /hpf (0-5) 10/09/25 07:15 Ur Squamous Epith Cells 0-5 /hpf (0-5) 10/09/25 07:15 Amorphous Sediment Not Reportable 10/09/25 07:15 Urine Bacteria None seen /hpf (NONE) 10/09/25 07:15 Hyaline Casts 7.01 /lpf 10/09/25 07:15 Vitals Last Vital Signs Temp 97.7 F 10/10/25 07:56 Pulse 57 L 10/10/25 09:37 Resp 18 10/10/25 09:37 BP 121/92 10/10/25 09:22 Pulse Ox 97 10/10/25 09:37 O2 Del Method Room Air 10/10/25 09:37 Discharge Plan Discharge Patient Disposition: Home Condition: Stable Prescriptions: New prednisone 20 mg tablet 40 mg PO DAILY 5 Days Qty: 10 0RF Continued aspirin 325 mg tablet 325 mg PO DAILY Qty: 90 3RF cholecalciferol (vitamin D3) 50 mcg (2,000 unit) capsule 50 mcg PO DAILY Qty: 30 0RF doxepin 10 mg capsule 10 mg PO .at bedtime Qty: 90 0RF sotalol [Betapace] 120 mg tablet 120 mg PO QAM Qty: 90 1RF sotalol 80 mg tablet 80 mg PO BEDTIME Qty: 90 1RF valsartan [Diovan] 160 mg tablet 160 mg PO DAILY Qty: 90 1RF (DME) pen needle, diabetic 33 gauge x 5/32 needle See Rx Instructions .ROUTE .MEDSUPPLY Qty: 100 5RF Rx Instructions: 1 time day atorvastatin 80 mg tablet 80 mg PO QAM methocarbamol 750 mg tablet 750 mg PO .every 12 hours PRN (Reason: Muscle Pain) levothyroxine 50 mcg tablet 50 mcg PO QAM duloxetine 20 mg capsule,delayed release(DR/EC) 20 mg PO DAILY oseltamivir [Tamiflu] 75 mg capsule 75 mg PO BID 5 Days Qty: 10 0RF Discontinued albuterol sulfate 90 mcg/actuation HFA aerosol inhaler 2 inh inhalation QID PRN (Reason: shortness of breath or wheezing) Qty: 8.5 2RF Discharge Order = DC NOW: Discharge Order (Routine); Ordered 10/10/25 Ordered By: Brennan Lasron Referrals: Nicolas Pink FNP-C [Primary Care Provider, [facility]] - 10/30/25 1:00 pm Patient Instructions: A-fib (Atrial Fibrillation) (DC), Influenza (DC), Hypertension (DC), Opioid Safety, Patient Portal & Armando Instructions Activity Restrictions/Additional Instructions: I actually recommend that you hold off on the albuterol, it can actually set off your A-fib. Do continue the prednisone I ordered you 40 mg daily for 5 days and that should take care of your symptoms. Continue the Tamiflu, oral oseltamivir, for a total of 5 days. Discharge Attestations Time Spent in Discharge Care*: greater than 30 min Time Spent in Smoking Cessation: 6 minutes spent with the patient about smoking cessation, recommended nicotine patches which she is agreeable to use. Quality Metrics Clinical Quality Measures [ No reported AMI, CVA or VTE this stay] Coding Level of Care Code 54585 Diagnoses Atrial fibrillation, unspecified type I48.91 Atrial fibrillation type: unspecified Influenza A J10.1 Essential hypertension I10 Hypertension type: essential hypertension Hyperlipidemia, mixed E78.2 Obesity, morbid, BMI 40.0-49.9 E66.01
== END 2025-10-10 12:30 | disposition home or self-care (01) ==
LOC: ER 09:03 → ER IP 09:19 → CSU 11:45
PROVIDERS: Admitting Provider Family Medicine; Emergency Provider Emergency Medicine; PCP Nurse Practitioner; Visit Provider Internal Medicine
DX: I48.91 Unspecified atrial fibrillation (principal); J10.1 Influenza due to other identified influenza virus with other respiratory manifestations; I10 Essential (primary) hypertension; E78.2 Mixed hyperlipidemia; E66.01 Morbid (severe) obesity due to excess calories; Z68.42 Body mass index [BMI] 45.0-49.9, adult; Z79.82 Long term (current) use of aspirin; E03.9 Hypothyroidism, unspecified; Z80.1 Family history of malignant neoplasm of trachea, bronchus and lung; Z80.0 Family history of malignant neoplasm of digestive organs; F17.210 Nicotine dependence, cigarettes, uncomplicated
CPT/HCPCS: 36415; 71045; 80053; 81001; 83605; 84484; 85025; 87040; 93005; 94640; A4222; G0378; J0282; J0283; J2919; J7030; J9999